=== PATIENT | male | born 1960 | race Caucasian/White ===

== ENCOUNTER 2017-04-19 04:27 | Inpatient (IN) | payer OTHER ==
[2017-04-19] VITALS (16 sets, daily range): BP systolic 123–153; BP diastolic 79–93; PULSE 90–130; RESP 18–29; TEMP 98.4–99.7; O2SAT 96–97
[~2017-04-19] VITALS: Ht 182.9 cm; Wt 68.9 kg
[~2017-04-19 04:27] MED LIST: CIPR500T4 PO
[2017-04-19] MEDS ORDERED: SODIUM CHLOR 0.9% 1000 ML INJ 1,000 ML IV SCH (04:31)
[2017-04-19] MEDS ORDERED: LORazepam 2 MG/ML VIAL IV PUSH ONE ×4 (04:45→06:15)
[2017-04-19] MEDS ORDERED: THIAMINE INJ 100 MG in SODIUM CHLORIDE 0.9% INJ 100 ML IV ONE (04:45)
[2017-04-19] MEDS ORDERED: levETIRAcetam INJ 100 ML IV ONE (04:45)
[2017-04-19] MEDS ORDERED: SODIUM CHLORIDE 0.9% FLUSH 10 ML FLUSH IV FLUSH PRN (04:45)
[2017-04-19] MEDS ORDERED: diphenhydrAMINE HCL 50 MG/ML VIAL ONE (04:46)
[2017-04-19 04:56] LABS: AUTOMATED NEUTROPHIL # 9.8 TH/MM3 (1.8-7.7); BASOPHIL % 0.3 % (0.0-2.0); HEMOGLOBIN 14.3 GM/DL (13.0-17.0); LYMPH % 17.1 % (9.0-44.0); LYMPHOCYTE # 2.2 TH/MM3 (1.0-4.8); MEAN CORPUSCULAR HEMOGLOBIN 32.7 PG (27.0-34.0); MEAN CORPUSCULAR HGB CONC 33.4 % (32.0-36.0); MEAN PLATELET VOLUME 8.7 FL (7.0-11.0); MONO % 5.2 % (0.0-8.0); MONOCYTE # 0.7 TH/MM3 (0-0.9); NEUT % 77.4 % (16.0-70.0); PLATELET COUNT 173 TH/MM3 (150-450); RED BLOOD COUNT 4.39 MIL/MM3 (4.50-5.90); RED CELL DISTRIBUTION WIDTH 16.1 % (11.6-17.2); WHITE BLOOD COUNT 12.7 TH/MM3 (4.0-11.0)
[2017-04-19] MEDS ORDERED: diphenhydrAMINE HCL 50 MG/ML VIAL IV PUSH ONE (05:00)
--- NOTE | 2017-04-19 05:06 | RADRPT ---
EXAM DATE/TIME: 04/19/2017 04:37 [facility] COMPARISON: No previous studies available for comparison. INDICATIONS : Syncopal episode. MEDICAL HISTORY : None. SURGICAL HISTORY : Inguinal hernia repair. ENCOUNTER: Initial ACUITY: 1 day PAIN SCORE: Non-responsive. LOCATION: Bilateral chest FINDINGS: A single view of the chest demonstrates the lungs to be symmetrically aerated without evidence of mas s, infiltrate or effusion. The cardiomediastinal contours are unremarkable. Old left clavicle and le ft rib fractures are present CONCLUSION: 1. No acute cardiopulmonary disease. Joesph Bailon MD on April 19, 2017 at 5:03 Board Certified Radiologist. This report was verified electronically.
[2017-04-19 05:08] LABS: INTERNATIONAL NORMALIZED RATIO 1.2 RATIO; PROTHROMBIN TIME - PATIENT 12.2 SEC (9.8-11.6)
[2017-04-19] MEDS ORDERED: DEXTROSE 50% IN WATER 50 ML SYRINGE IV PUSH ONE (05:15)
--- NOTE | 2017-04-19 05:22 | PD ---
HPI . Seizure-like activity Chief Complaint: Seizure Time Seen by Provider: 04:31 Travel History International Travel<30 days: No Contact w/Intl Traveler<30days: No Traveled to known affect area: No History of Present Illness HPI 57-year-old male with history of chronic alcoholism and crack cocaine abuse, presents via EMS with possible alcohol withdrawals. His girlfriend noted that the patient has not had alcohol for at least 24 hours, that is current presentation is similar to previous episodes of alcohol withdrawal. Patient presents writhing on the stretcher responding to internal stimuli and visual stimuli not present. No harpreet seizure activity noted by EMS on route or noted here at presentation in ED. Patient is in active delirium, not offering history PFSH Past Medical History Narrative Medical Past medical history reviewed Arthritis: Yes Depression: Yes Cancer: No Cardiovascular Problems: No Diminished Hearing: No Endocrine: No Genitourinary: No Immune Disorder: No Inguinal Hernia: Yes (BILATERAL HERNIA) Implanted Vascular Access Dvce: No Musculoskeletal: No Neurologic: No Reproductive: No Respiratory: No Past Surgical History Other Surgery: Yes (INGUINAL HERNIA REPAIR) Social History Alcohol Use: Yes (DRINKING SINCE 25 YRS OLD,daily binger) Tobacco Use: Yes (1/2-1 PK DAILY) Substance Use: No Allergies-Medications (Allergen,Severity, Reaction): Coded Allergies: No Known Allergies (Unverified Adverse Reaction, Unknown, 04/19/17) Reported Meds & Prescriptions Reported Meds & Active Scripts Active Narrative Medication Allergies and medications reviewed Review of Systems Neurologic: Positive: Tremor, Ataxia, Change in Mentation, Seizures Psychiatric: Positive: Substance Abuse Physical Exam Exam Limitations: Clinical Condition, Altered Mental Status, Uncooperative, Combative, Psychotic Narrative GENERAL: Awake and altered, and delirium. Tachycardic 135 bpm limited exam secondary to patient's delirious and confused state SKIN: Warm and dry. Multiple lesions from patient self excoriating HEAD: Multiple ecchymotic lesions about face and had, no obvious bony step- offs. Normocephalic. EYES: Pupils equal and round. No scleral icterus. No injection or drainage. ENT: No nasal bleeding or discharge. Mucous membranes pink and moist. NECK: Trachea midline. No JVD. Supple moving actively CARDIOVASCULAR: S1 and S2 tachycardia regular RESPIRATORY: No accessory muscle use. Clear to auscultation. Breath sounds equal bilaterally. GASTROINTESTINAL: Abdomen soft, non-tender, nondistended. Hepatic and splenic margins not palpable. MUSCULOSKELETAL: Extremities without clubbing, cyanosis, or edema. No obvious deformities. NEUROLOGICAL: Awake severely confused, altered. Moving all 4 extremities, resting tremor, worsening intention tremor area no active seizure activity currently PSYCHIATRIC: Unable to participate in exam Data Data Last Documented VS Vital Signs Date Time Temp Pulse Resp B/P (MAP) Pulse Ox O2 Delivery O2 Flow Rate FiO2 04/19/17 04:35 130 24 146/90 (108) 96 Orders Orders Electrocardiogram (04/19/17 04:31) Ammonia (04/19/17 04:31) Complete Blood Count With Diff (04/19/17 04:31) Comprehensive Metabolic Panel (04/19/17 04:31) Creatine Kinase (Cpk) (04/19/17 04:31) Prothrombin Time / Inr (Pt) (04/19/17 04:31) Act Partial Throm Time (Ptt) (04/19/17 04:31) Troponin I (04/19/17 04:31) Thyroid Stimulating Hormone (04/19/17 04:31) Urinalysis - C+S If Indicated (04/19/17 04:31) Chest, Single Ap (04/19/17 04:31) Ct Brain W/O Iv Contrast(Rout) (04/19/17 04:31) Blood Glucose (04/19/17 04:31) Ecg Monitoring (04/19/17 04:31) Iv Access Insert/Monitor (04/19/17 04:31) Oximetry (04/19/17 04:31) Sodium Chloride 0.9% Flush (Ns Flush) (04/19/17 04:45) Sodium Chlor 0.9% 1000 Ml Inj (Ns 1000 M (04/19/17 04:31) Thiamine Inj (Thiamine Inj) (04/19/17 04:45) Drug Screen, Random Urine (04/19/17 04:31) Alcohol (Ethanol) (04/19/17 04:31) Tylenol (Acetaminophen) (04/19/17 04:31) Salicylates (Aspirin) (04/19/17 04:31) Lorazepam Inj (Ativan Inj) (04/19/17 04:45) Levetiracetam Inj (Keppra Inj) (04/19/17 04:45) Lorazepam Inj (Ativan Inj) (04/19/17 04:45) Diphenhydramine Inj (Benadryl Inj) (04/19/17 04:46) Diphenhydramine Inj (Benadryl Inj) (04/19/17 05:00) Lorazepam Inj (Ativan Inj) (04/19/17 05:15) Dextrose 50% In Vern (Syr) Inj (D50w (Syr (04/19/17 05:15) Labs Laboratory Tests Test 04/19/17 04:45 White Blood Count 12.7 TH/MM3 Red Blood Count 4.39 MIL/MM3 Hemoglobin 14.3 GM/DL Hematocrit 43.0 % Mean Corpuscular Volume 98.0 FL Mean Corpuscular Hemoglobin 32.7 PG Mean Corpuscular Hemoglobin Concent 33.4 % Red Cell Distribution Width 16.1 % Platelet Count 173 TH/MM3 Mean Platelet Volume 8.7 FL Neutrophils (%) (Auto) 77.4 % Lymphocytes (%) (Auto) 17.1 % Monocytes (%) (Auto) 5.2 % Eosinophils (%) (Auto) 0.0 % Basophils (%) (Auto) 0.3 % Neutrophils # (Auto) 9.8 TH/MM3 Lymphocytes # (Auto) 2.2 TH/MM3 Monocytes # (Auto) 0.7 TH/MM3 Eosinophils # (Auto) 0.0 TH/MM3 Basophils # (Auto) 0.0 TH/MM3 CBC Comment DIFF FINAL Differential Comment Prothrombin Time 12.2 SEC Prothromb Time International Ratio 1.2 RATIO Activated Partial Thromboplast Time 26.9 SEC Ammonia 51 MCMOL/L Salicylates Level LESS THAN 1.7 MG/DL [facility] Medical Decision Making Medical Screen Exam Complete: Yes Emergency Medical Condition: Yes Medical Record Reviewed: Yes Differential Diagnosis Acute alcohol withdrawal, chronic intoxication, altered mental status, delirium , tachycardia Narrative Course Patient given multiple aliquots of Ativan 2 mg IV push with improvement in patient's symptomatology. Tremors, response to auditory and/or visual stimuli decreasing, heart rate decreasing. Diagnosis Primary Impression: Alcohol withdrawal delirium Additional Impression: Alcohol withdrawal seizure Qualified Codes: F10.231 - Alcohol dependence with withdrawal delirium Admitting Information Admitting Physician Requests: Admit Robin Robison MD Apr 19, 2017 05:21
[2017-04-19 05:29] LABS: ACETAMINOPHEN LESS THAN 2.0 MCG/ML (10.0-30.0); ALBUMIN 3.3 GM/DL (3.4-5.0); ALKALINE PHOSPHATASE 288 U/L (45-117); ALT (GPT) 102 U/L (12-78); AST (GOT) 328 U/L (15-37); BICARBONATE 18.6 MEQ/L (21.0-32.0); BLOOD UREA NITROGEN 4 MG/DL (7-18); CALCIUM 8.4 MG/DL (8.5-10.1); CHLORIDE 101 MEQ/L (98-107); CREATININE 0.86 MG/DL (0.60-1.30); GLOMERULAR FILTRATION RATE 92 ML/MIN (>89); GLUCOSE,RANDOM 107 MG/DL (74-106); SODIUM (NA) 137 MEQ/L (136-145); TOTAL BILIRUBIN ADULT 1.4 MG/DL (0.2-1.0); TOTAL PROTEIN 8.8 GM/DL (6.4-8.2); TROPONIN I LESS THAN 0.02 NG/ML (0.02-0.05)
--- NOTE | 2017-04-19 06:51 | RADRPT ---
EXAM DATE/TIME: 04/19/2017 06:26 [facility] COMPARISON: No previous studies available for comparison. INDICATIONS : Seizure; possible overdose. RADIATION DOSE: 35.82 CTDIvol (mGy) MEDICAL HISTORY : None SURGICAL HISTORY : None. ENCOUNTER: Initial ACUITY: 1 day PAIN SCALE: Non-responsive LOCATION: cranial TECHNIQUE: Multiple contiguous axial images were obtained of the head. Using automated exposure control and adj ustment of the mA and/or kV according to patient size, radiation dose was kept as low as reasonably a chievable to obtain optimal diagnostic quality images. DICOM format image data is available electro nically for review and comparison. FINDINGS: Noncontrast axial head CT demonstrates the ventricles to be normal in size and configuration with a n ormal sulcal pattern. No acute intracranial hemorrhage, acute cortical infarction, mass or midline sh ift is seen. There is benign-appearing mucosal disease in the maxillary antra bilaterally. Posterior fossa structures are unremarkable. Bone windows are unremarkable. CONCLUSION: 1. No evidence of acute intracranial pathology. No masses are identified. Joesph Bailon MD on April 19, 2017 at 6:48 Board Certified Radiologist. This report was verified electronically.
[2017-04-19] MEDS ORDERED: SODIUM CHLOR 0.9% 1000 ML INJ 1,000 ML IV ONE (07:00)
[2017-04-19] MEDS ORDERED: LACTULOSE SYRUP 20 GM/30 ML CUP PO PRN (09:45)
[2017-04-19] MEDS: INSULIN NovoLIN REGULAR SUPPLEMENTAL SCALE SQ SCH ×4 (09:45→21:45)
[2017-04-19] MEDS ORDERED: MAGNESIUM HYDROXIDE SUSP 30 ML CUP PO PRN (09:45)
[2017-04-19] MEDS ORDERED: GLUCAGON 1 MG/ML VIAL OTHER PRN (09:45)
[2017-04-19] MEDS ORDERED: CHLORHEXIDINE GLUCONATE 2 % 1 PACK (2 CLOTHS) TOP PRN (09:45)
[2017-04-19] MEDS ORDERED: DEXTROSE 50% IN WATER 50 ML VIAL(D50) IV PUSH PRN (09:45)
[2017-04-19] MEDS ORDERED: SENNOSIDES 8.6 MG TAB PO PRN (09:45)
[2017-04-19] MEDS ORDERED: RESP: ALBUTEROL 2.5 MG/IPRATROPIUM 0.5 MG NEB (PRN) INH (09:45)
[2017-04-19] MEDS ORDERED: MISCELLANEOUS NURSING INFORMATION XX SCH (09:45)
[2017-04-19] MEDS ORDERED: BISACODYL 10 MG SUPP RECTAL PRN (09:45)
[2017-04-19 09:53] LABS: BILIRUBIN, URINE NEG (NEG); BLOOD, URINE NEG (NEG); GLUCOSE,URINE NEG (NEG); KETONE, URINE NEG (NEG); MUCUS URINE FEW /lpf (OCC); NITRITE,URINE NEG (NEG); TRANSITIONAL EPI CELLS, URINE <1 /hpf; URINE COLOR YELLOW (YELLW/STRAW); URINE LEUKOCYTE ESTERASE NEG (NEG)
[2017-04-19] MEDS ORDERED: POTASSIUM PHOSPHATE MONOBASIC 500 MG TAB PO PRN (10:00)
[2017-04-19] MEDS ORDERED: SODIUM PHOSPHATE INJ 30 MMOL in SODIUM CHLOR 0.9% 250 ML INJ 240 ML IV PRN (10:00)
[2017-04-19] MEDS ORDERED: LORazepam 1 MG TAB PO PRN ×2 (10:00→21:00)
[2017-04-19] MEDS ORDERED: POTASSIUM PHOSPHATE MONOBASIC 500 MG TAB PO/TUBE PRN (10:00)
[2017-04-19] MEDS ORDERED: MAGNESIUM OXIDE 400 MG TAB PO PRN (10:00)
[2017-04-19] MEDS ORDERED: MAGNESIUM SULFATE INJ 2 GM in SODIUM CHLORIDE 0.9% INJ 96 ML IV PRN (10:00)
[2017-04-19] MEDS ORDERED: MAGNESIUM SULFATE INJ 4 GM in SODIUM CHLORIDE 0.9% INJ 92 ML IV PRN (10:00)
[2017-04-19] MEDS ORDERED: FLUMAZENIL 0.5 MG/5 ML VIAL IV PUSH PRN ×2 (10:00→21:00)
[2017-04-19] MEDS ORDERED: LORazepam 2 MG/ML VIAL IV PUSH PRN ×6 (10:00→21:00)
[2017-04-19] MEDS ORDERED: POTASSIUM PHOSPHATE INJ 30 MMOL in SODIUM CHLOR 0.9% 250 ML INJ 250 ML IV PRN (10:00)
[2017-04-19] MEDS ORDERED: POTASSIUM CHLOR 40 MEQ PREMIX 100 ML IV PRN ×2 (10:00)
[2017-04-19] MEDS: RESP: ALBUTEROL 2.5 MG/IPRATROPIUM 0.5 MG NEB (SCH) INH ×3 (10:37→22:11)
--- NOTE | 2017-04-19 10:42 | RADRPT ---
EXAM DATE/TIME: 04/19/2017 10:10 [facility] COMPARISON: No previous studies available for comparison. INDICATIONS : Increased lab values. MEDICAL HISTORY : Bilateral hernia. ETOH and substance abuse. SURGICAL HISTORY : Left knee surgery. Inguinal hernia repair. ENCOUNTER: Initial ACUITY: 1 day PAIN SCORE: Nonresponsive. LOCATION: Bilateral upper quadrant MEASUREMENTS: LIVER: 18.77 cm length COMMON DUCT: 2 mm RIGHT KIDNEY: 12.7 x 5.6 x 5.4 cm SPLEEN: 14.7 cm length FINDINGS: LIVER: Liver is enlarged measuring up to 18.8 cm in diameter with heterogeneity and increased echogenicity. There is no focal mass or ductal dilatation. There is normal hepatopedal blood flow in the portal vei n. There is no ascites. COMMON DUCT: No intraluminal mass or stone visualized. GALLBLADDER: Normal in size. There is mild gallbladder wall thickening measuring up to 4 mm with no pericholecysti c fluid. There is a single air calcification of posterior shadowing. PANCREAS: The visualized portions are within normal limits. RIGHT KIDNEY: No hydronephrosis, stone or mass. SPLEEN: Mild splenomegaly measuring up to 14.7 cm. There is no focal mass or ascites. CONCLUSION: 1. Hepatosplenomegaly with coarse hepatic echotexture which could indicate hepatocellular disease or cys hepatic steatosis. 2. Cholelithiasis with single gallstone and mild wall thickening. There is no evidence of biliary obs truction. Paul Hassan MD on April 19, 2017 at 10:38 Board Certified Radiologist. This report was verified electronically.
[2017-04-19] MEDS: MULTIVITAMIN TAB PO SCH (11:00)
[2017-04-19] MEDS: THIAMINE HCL 100 MG TAB PO SCH (11:00)
[2017-04-19] MEDS: FOLIC ACID 1 MG TAB PO SCH (11:00)
[2017-04-19] MEDS: FAMOTIDINE 20 MG/2 ML VIAL IV PUSH SCH ×2 (11:01→21:00)
[2017-04-19] MEDS: LORazepam 2 MG/ML VIAL IV PUSH PRN ×3 (11:04→23:55)
[2017-04-19] MEDS: SODIUM CHLOR 0.9% 1000 ML INJ 1,000 ML IV SCH ×2 (11:05→15:02)
[2017-04-19] MEDS: LACTULOSE SYRUP 20 GM/30 ML CUP PO SCH ×2 (13:00→17:59)
--- NOTE | 2017-04-19 13:51 | MH ---
cc: ELIASADRIANA RODRIGUEZ DATE OF ADMISSION: 04/19/2017 1961 HISTORY OF PRESENT ILLNESS The patient is a 57-year-old male with past medical history of ETOH abuse, crack cocaine, who presented to [facility] ED via EMS with possible alcohol withdrawal. According to the ED records the patient has not had alcohol for at least 24 hours and his current presentation is similar to previous episodes of alcohol withdrawal. No harpreet seizure activity noted by EMS en route or in the ED. History is limited due to patient's mental status and most of the history was obtained from reviewing medical records. He was given total Ativan 10 mg since early this morning, in addition to 2 liter boluses of normal saline. His laboratory data significant for elevated alcohol level at 37, elevated CKs 4919 and ammonia level 51. The patient was also noted to have increased LFTs with AST 328, ALT 102, alk phos 288 and total bilirubin 1.4. Due to altered mental status CT scan of brain was obtained which showed no evidence of any acute intracranial pathology. Chest x-ray in the ED showed no acute cardiopulmonary disease as well. PAST MEDICAL HISTORY Past medical history significant for arthritis, depression. PAST SURGICAL HISTORY Previous inguinal hernia repair. SOCIAL HISTORY Active smoker and drinker and a history of crack cocaine use. ALLERGIES NO KNOWN DRUG ALLERGIES. MEDICATION Reported medications: Unknown. FAMILY HISTORY Unknown and noncontributory to current present illness. SOCIAL HISTORY Unobtainable. PHYSICAL EXAMINATION GENERAL: A 57-year-old male lying in bed with altered mental status. VITAL SIGNS: Temperature 99.7, pulse of 110, blood pressure 146/90, saturation 96% on 2 liters. HEENT: Atraumatic, normocephalic. Pupil equal, round, reactive to light and accommodation. Extraocular muscles intact. Conjunctivae pink. Nonicteric sclerae. Oral mucosa within normal. NECK: Supple. No JVD, adenopathy or thyromegaly. Trachea midline. CARDIOVASCULAR: Tachycardic, normal S1-S2. No murmurs, rubs or gallops noted. PULMONARY: Bilateral equal air entry with a few coarse breath sounds. ABDOMEN: Soft, nontender, nondistended. Positive bowel sounds. EXTREMITIES: No cyanosis, clubbing or edema. NEURO: Lethargic, somnolent and altered. LABORATORY DATA WBC 12.7, hemoglobin 14.3, hematocrit 43, platelet count 173, sodium 137, potassium 3.6, chloride 101, CO2 18, BUN 4, creatinine 0.86, glucose 107, total bilirubin 1.4, AST 328, ALT 102, alk phos 288, ammonia level of 51, total CK 4919, troponin less than 0.02, TSH 1.6, albumin 3.3. ABG was performed on room air which showed a pH of 7.47, CO2 32, pAO2 57, bicarb 23. Urine drug screen negative for cocaine, marijuana, amphetamines, alcohol level 37, Tylenol level less than 2, aspirin level less than 1.7. RADIOGRAPHIC STUDIES CT scan of the brain showed no evidence of any acute intracranial pathology. Chest x-ray showed no acute disease. IMPRESSION 1. Respiratory insufficiency. 2. Altered mental status. 3. ETOH intoxication. 4. Questionable drug overdose. 5. Elevated LFTs secondary to ETOH use. 6. Elevated ammonia level. 7. Elevated CKs. RECOMMENDATIONS 1. Monitor neuro status closely and avoid any sedatives. A CT scan of the brain in the ED showed no acute intracranial pathology. Monitor for signs of alcohol withdrawal. Will place the patient on CIWA protocol. In addition we will place on thiamine, multivitamins and folic acid. Will place on lactulose 30 mL t.i.d. and monitor ammonia level. 2. Continue with oxygen, maintain sats above 92%. 3. Bronchodilators in the form of DuoNeb. If there is any worsening in respiratory status or clinical condition we will proceed with intubation and mechanical ventilation. 4. Chest x-ray in the ED showed no evidence of any acute cardiopulmonary disease. 5. Monitor heart rate and blood pressure closely and maintain MAP greater than [address] on IV fluids NS at 100 mL an hour. 6. Monitor renal function, I&O's and electrolyte replacement per protocol. IV fluids as stated above. Monitor CKs. 7. Keep n.p.o. for now and place on Pepcid 20 mg IV q. 12. Monitor LFTs. Will obtain ultrasound of the liver and check hepatitis profile. 8. Will hold off on antibiotics at this time as there is no evidence of any infectious process. His urinalysis was negative for UTI and chest x-ray negative for acute cardiopulmonary disease. 9. Monitor CBC. 10. Sliding scale insulin with Accu-Cheks for glycemic control. 11. GI prophylaxis with Pepcid 20 mg q. 12 and DVT prophylaxis with SCDs and heparin subcu. 12. Further recommendations will be based on hospital course. MD DANELLE Alvarez/LORETTA /1:06 PM /1:27 PM
[2017-04-19] MEDS: DEXT 5%-NACL 0.9% 1000 ML INJ 1,000 ML IV SCH (16:15)
[2017-04-19 19:03] LABS: AUTOMATED NEUTROPHIL # 4.6 TH/MM3 (1.8-7.7); BASOPHIL % 0.5 % (0.0-2.0); EOSINOPHIL % 0.4 % (0.0-4.0); HEMATOCRIT 36.4 % (39.0-51.0); HEMOGLOBIN 12.3 GM/DL (13.0-17.0); LYMPH % 20.2 % (9.0-44.0); LYMPHOCYTE # 1.3 TH/MM3 (1.0-4.8); MEAN CORPUSCULAR HEMOGLOBIN 32.5 PG (27.0-34.0); MEAN CORPUSCULAR HGB CONC 33.9 % (32.0-36.0); MEAN PLATELET VOLUME 8.8 FL (7.0-11.0); MONO % 6.7 % (0.0-8.0); MONOCYTE # 0.4 TH/MM3 (0-0.9); NEUT % 72.2 % (16.0-70.0); PLATELET COUNT 87 TH/MM3 (150-450); RED BLOOD COUNT 3.79 MIL/MM3 (4.50-5.90); RED CELL DISTRIBUTION WIDTH 16.2 % (11.6-17.2); WHITE BLOOD COUNT 6.4 TH/MM3 (4.0-11.0)
[2017-04-19 19:10] LABS: ALBUMIN 2.7 GM/DL (3.4-5.0); ALKALINE PHOSPHATASE 218 U/L (45-117); ALT (GPT) 88 U/L (12-78); AST (GOT) 265 U/L (15-37); BICARBONATE 23.2 MEQ/L (21.0-32.0); BLOOD UREA NITROGEN 5 MG/DL (7-18); CALCIUM 7.6 MG/DL (8.5-10.1); CHLORIDE 106 MEQ/L (98-107); CREATININE 0.57 MG/DL (0.60-1.30); GLOMERULAR FILTRATION RATE 148 ML/MIN (>89); GLUCOSE,RANDOM 89 MG/DL (74-106); SODIUM (NA) 140 MEQ/L (136-145); TOTAL BILIRUBIN ADULT 1.5 MG/DL (0.2-1.0); TOTAL PROTEIN 6.8 GM/DL (6.4-8.2)
[2017-04-19] MEDS: POTASSIUM CHLOR 20 MEQ PREMIX 100 ML IV PRN ×2 (20:11→22:22)
[2017-04-19] MEDS: HEPARIN SODIUM - SQ 10,000 UNITS/ML VIAL SQ SCH (21:00)
[2017-04-19] MEDS ORDERED: DEXMEDETOMIDINE HCL 200 MCG/2 ML VIAL IV PUSH ONE (21:00)
[2017-04-19] MEDS: DOCUSATE SODIUM 50 MG/SENNA 8.6 MG TAB PO SCH (21:00)
[2017-04-19] MEDS ORDERED: LORazepam 2 MG TAB PO PRN (21:00)
[2017-04-20] VITALS (20 sets, daily range): BP systolic 126–162; BP diastolic 73–89; PULSE 90–121; RESP 24–32; TEMP 98.2–102.7; O2SAT 96–99
[2017-04-20] MEDS: DEXMEDETOMIDINE INJ 200 MCG in SODIUM CHLORIDE 0.9% INJ 50 ML IV PRN ×2 (00:12→06:04)
[2017-04-20] MEDS: POTASSIUM CHLOR 20 MEQ PREMIX 100 ML IV PRN ×2 (00:48→02:50)
[2017-04-20] MEDS: INSULIN NovoLIN REGULAR SUPPLEMENTAL SCALE SQ SCH ×6 (01:45→20:23)
[2017-04-20] MEDS: RESP: ALBUTEROL 2.5 MG/IPRATROPIUM 0.5 MG NEB (SCH) INH ×4 (03:48→20:28)
[2017-04-20 03:56] LABS: AUTOMATED NEUTROPHIL # 3.1 TH/MM3 (1.8-7.7); BASOPHIL # 0.1 TH/MM3 (0-0.2); EOSINOPHIL # 0.1 TH/MM3 (0-0.4); EOSINOPHIL % 1.7 % (0.0-4.0); HEMOGLOBIN 12.5 GM/DL (13.0-17.0); LYMPH % 29.3 % (9.0-44.0); LYMPHOCYTE # 1.5 TH/MM3 (1.0-4.8); MEAN CELL VOLUME 98.5 FL (80.0-100.0); MEAN CORPUSCULAR HEMOGLOBIN 33.3 PG (27.0-34.0); MEAN CORPUSCULAR HGB CONC 33.8 % (32.0-36.0); MEAN PLATELET VOLUME 8.6 FL (7.0-11.0); MONO % 9.7 % (0.0-8.0); MONOCYTE # 0.5 TH/MM3 (0-0.9); NEUT % 58.3 % (16.0-70.0); PLATELET COUNT 81 TH/MM3 (150-450); RED BLOOD COUNT 3.76 MIL/MM3 (4.50-5.90); RED CELL DISTRIBUTION WIDTH 16.1 % (11.6-17.2); WHITE BLOOD COUNT 5.2 TH/MM3 (4.0-11.0)
[2017-04-20] MEDS: CHLORHEXIDINE GLUCONATE 2 % 1 PACK (2 CLOTHS) TOP SCH (04:00)
[2017-04-20] MEDS: DEXT 5%-NACL 0.9% 1000 ML INJ 1,000 ML IV SCH ×2 (04:04→16:51)
[2017-04-20 04:46] LABS: ALBUMIN 2.5 GM/DL (3.4-5.0); BICARBONATE 22.1 MEQ/L (21.0-32.0); CALCIUM 7.4 MG/DL (8.5-10.1); CALCIUM-PROTEIN CORRECTED 7.6 MG/DL (8.5-10.1); CREATININE 0.51 MG/DL (0.60-1.30); MAGNESIUM 1.5 MG/DL (1.5-2.5); PHOSPHORUS 2.7 MG/DL (2.5-4.9); TOTAL BILIRUBIN ADULT 1.4 MG/DL (0.2-1.0); TOTAL PROTEIN 6.7 GM/DL (6.4-8.2)
--- NOTE | 2017-04-20 06:29 | EKG ---
Date Performed: 04/19/2017 Time Performed: 05:26:15 PTAGE: 57 years EKG: SINUS TACHYCARDIA POSSIBLE LEFT ATRIAL ENLARGEMENT NONSPECIFIC T-WAVE ABNORMALITY RIGHT FELISHA TRICULAR CONDUCTION DELAY ABNORMAL RHYTHM ECG Compared to PREVIOUS TRACING , there has been some slight variation of the nonspecific ST-T wave lees ges but no other signifiant serial change. PREVIOUS TRACIN12/18/2013 15.15 DOCTOR: Jory Lewis Interpretating Date/Time 04/20/2017 06:29:46
[2017-04-20] MEDS: LACTULOSE SYRUP 20 GM/30 ML CUP PO SCH ×3 (09:00→16:54)
[2017-04-20] MEDS: FOLIC ACID 1 MG TAB PO SCH (09:00)
[2017-04-20] MEDS: THIAMINE HCL 100 MG TAB PO SCH (09:00)
[2017-04-20] MEDS: MULTIVITAMIN TAB PO SCH (09:00)
[2017-04-20] MEDS: DOCUSATE SODIUM 50 MG/SENNA 8.6 MG TAB PO SCH ×2 (09:00→20:20)
[2017-04-20 09:37] LABS: HEPATITIS A AB IGM NEGATIVE (NEGATIVE); HEPATITIS B CORE AB IGM NEGATIVE (NEGATIVE); HEPATITIS B SURFACE ANTIGEN NEGATIVE (NEGATIVE); HEPATITIS C AB IgG REACTIVE (NEGATIVE)
--- NOTE | 2017-04-20 10:24 | HHI.CCPN ---
Subjective Remarks/Hospital Course Patient is a 57-year-old male with past medical history of ETOH abuse, crack cocaine, who presented to [facility] ED via EMS with possible alcohol withdrawal. According to the ED records the patient has not had alcohol for at least 24 hours and his current presentation is similar to previous episodes of alcohol withdrawal. No harpreet seizure activity noted by EMS en route or in the ED. History is limited due to patient's mental status and most of the history was obtained from reviewing medical records. He was given total Ativan 10 mg since early this morning, in addition to 2 liter boluses of normal saline. His laboratory data significant for elevated alcohol level at 37, elevated CKs 4919 and ammonia level 51. The patient was also noted to have increased LFTs with AST 328, ALT 102, alk phos 288 and total bilirubin 1.4. Due to altered mental status CT scan of brain was obtained which showed no evidence of any acute intracranial pathology. Chest x-ray in the ED showed no acute cardiopulmonary disease as well. 04/20 Patient was placed on Precedex drip overnight for agitation. Afebrile. Objective Vital Signs Date Time Temp Pulse Resp B/P (MAP) Pulse Ox O2 Delivery O2 Flow Rate FiO2 04/20/17 08:50 99 Nasal Cannula 2.00 04/20/17 06:00 97 04/20/17 04:00 98.5 30 141/73 (95) Intake and Output 04/20/17 04/20/17 04/21/17 08:00 16:00 00:00 Intake Total 1948 ml Output Total 750 ml Balance 1198 ml Result Diagram: 04/20/17 0312 04/20/17 0312 Other Results Laboratory Tests Test 04/19/17 12:26 04/19/17 17:13 04/19/17 20:54 04/20/17 03:12 Blood Gas Puncture Site RT RADIAL Blood Gas Patient Temperature 98.6 Blood Gas HCO3 23 mmol/L Blood Gas Base Excess -0.7 mmol/L Blood Gas Oxygen Saturation 88 % Arterial Blood pH 7.47 Arterial Blood Partial Pressure CO2 32 mmHg Arterial Blood Partial Pressure O2 57 mmHG Arterial Blood Oxygen Content 14.7 Vol % Arterial Blood Carboxyhemoglobin 1.9 % Arterial Blood Methemoglobin 0.5 % Blood Gas Hemoglobin 11.9 G/DL Oxygen Delivery Device ROOM AIR Blood Gas Inspired Oxygen 21 % White Blood Count 6.4 TH/MM3 5.2 TH/MM3 Red Blood Count 3.79 MIL/MM3 3.76 MIL/MM3 Hemoglobin 12.3 GM/DL 12.5 GM/DL Hematocrit 36.4 % 37.0 % Mean Corpuscular Volume 96.0 FL 98.5 FL Mean Corpuscular Hemoglobin 32.5 PG 33.3 PG Mean Corpuscular Hemoglobin Concent 33.9 % 33.8 % Red Cell Distribution Width 16.2 % 16.1 % Platelet Count 87 TH/MM3 81 TH/MM3 Mean Platelet Volume 8.8 FL 8.6 FL Neutrophils (%) (Auto) 72.2 % 58.3 % Lymphocytes (%) (Auto) 20.2 % 29.3 % Monocytes (%) (Auto) 6.7 % 9.7 % Eosinophils (%) (Auto) 0.4 % 1.7 % Basophils (%) (Auto) 0.5 % 1.0 % Neutrophils # (Auto) 4.6 TH/MM3 3.1 TH/MM3 Lymphocytes # (Auto) 1.3 TH/MM3 1.5 TH/MM3 Monocytes # (Auto) 0.4 TH/MM3 0.5 TH/MM3 Eosinophils # (Auto) 0.0 TH/MM3 0.1 TH/MM3 Basophils # (Auto) 0.0 TH/MM3 0.1 TH/MM3 CBC Comment AUTO DIFF AUTO DIFF Differential Comment AUTO DIFF CONFIRMED AUTO DIFF CONFIRMED Platelet Estimate LOW LOW Platelet Morphology Comment NORMAL NORMAL Blood Urea Nitrogen 5 MG/DL 5 MG/DL Creatinine 0.57 MG/DL 0.51 MG/DL Random Glucose 89 MG/DL 99 MG/DL Total Protein 6.8 GM/DL 6.7 GM/DL Albumin 2.7 GM/DL 2.5 GM/DL Calcium Level 7.6 MG/DL 7.4 MG/DL Alkaline Phosphatase 218 U/L 204 U/L Aspartate Amino Transf (AST/SGOT) 265 U/L 200 U/L Alanine Aminotransferase (ALT/SGPT) 88 U/L 77 U/L Total Bilirubin 1.5 MG/DL 1.4 MG/DL Sodium Level 140 MEQ/L 139 MEQ/L Potassium Level 3.1 MEQ/L 4.2 MEQ/L Chloride Level 106 MEQ/L 110 MEQ/L Carbon Dioxide Level 23.2 MEQ/L 22.1 MEQ/L Anion Gap 11 MEQ/L 7 MEQ/L Estimat Glomerular Filtration Rate 148 ML/MIN 168 ML/MIN Phosphorus Level 2.1 MG/DL 2.7 MG/DL Hepatitis A IgM Antibody NEGATIVE Hepatitis B Surface Antigen NEGATIVE Hepatitis B Core IgM Antibody NEGATIVE Hepatitis C Antibody REACTIVE Magnesium Level 1.5 MG/DL Protein Corrected Calcium 7.6 MG/DL Total Creatine Kinase 1841 U/L Creatine Kinase MB 5.5 NG/ML Creatine Kinase MB % 0.3 % Imaging Last Impressions Head CT 04/19/17430 Signed Impressions: Service Date/Time: April 06:26 - CONCLUSION: 1. No evidence of acute intracranial pathology. No masses are identified. Joesph Bailon MD Chest X-Ray 04/19/17430 Signed Impressions: Service Date/Time: April 04:37 - CONCLUSION: 1. No acute cardiopulmonary disease. Joesph Bailon MD Liver Ultrasound 04/19/17 0000 Signed Impressions: Service Date/Time: April 10:10 - CONCLUSION: 1. Hepatosplenomegaly with coarse hepatic echotexture which could indicate hepatocellular disease or cys hepatic steatosis. 2. Cholelithiasis with single gallstone and mild wall thickening. There is no evidence of biliary obstruction. Paul Hassan MD Objective Remarks GENERAL: Patient is 57 yo lying in bed in NAD. SKIN: Warm and dry. HEAD: Normocephalic. EYES: No scleral icterus. No injection or drainage. NECK: Supple, trachea midline. No JVD or lymphadenopathy. CARDIOVASCULAR: Regular rate and rhythm without murmurs, gallops, or rubs. RESPIRATORY: Breath sounds equal bilaterally. No accessory muscle use. GASTROINTESTINAL: Abdomen soft, non-tender, nondistended. MUSCULOSKELETAL: No cyanosis, or edema. A/P Assessment and Plan 1. Respiratory insufficiency. 2. Altered mental status. 3. ETOH intoxication. 4. Questionable drug overdose. 5. Elevated LFTs secondary to ETOH use. 6. Elevated ammonia level. 7. Elevated CKs.(trending down) 8. Hep C reactive ab Plan Neuro: Monitor neuro status closely and avoid any sedatives. Wean off Precedex drip. CT brain in the ED showed no acute intracranial pathology. Monitor for signs of alcohol withdrawal. On CIWA protocol. Continue with thiamine, multivitamins and folic acid. On lactulose 30 mL t.i.d.monitor ammonia level. Pulm: Continue with oxygen, maintain sats above 92%. Bronchodilators, aspiration precautions CXR in ED showed no evidence of any acute cardiopulmonary disease. CV: Monitor HR and BP and maintain MAP > 65 mmHg. : Monitor renal function, I&O's and electrolyte replacement per protocol f On D5NS@84ml/hr, monitor CK's ( trending down) GI: On Pepcid 20 mg IV q. 12. Speech eval, diet per speech. Monitor LFTs( trending down) US Liver: Hepatosplenomegaly with coarse hepatic echotexture which could indicate hepatocellular disease or cys hepatic steatosis. Cholelithiasis with single gallstone and mild wall thickening. There is no evidence of biliary obstruction. Hepatitis profile: Hep C reactive ab. ID: Monitor for signs of infections ( fever, WBC) His urinalysis is negative for UTI and chest x-ray negative for acute cardiopulmonary disease. Heme: Monitor CBC. Endo: SSI with Accu-Cheks for glycemic control. GI prophylaxis with Pepcid 20 mg q. 12 and DVT prophylaxis with SCDs and heparin subcu. Level 3 Adriaon Luna MD Apr 20, 2017 10:24
[2017-04-20] MEDS: FAMOTIDINE 20 MG/2 ML VIAL IV PUSH SCH ×2 (12:58→20:19)
[2017-04-20] MEDS: HEPARIN SODIUM - SQ 10,000 UNITS/ML VIAL SQ SCH ×2 (12:58→20:20)
[2017-04-20] MEDS: LORazepam 2 MG/ML VIAL IV PUSH PRN (19:31)
[2017-04-20] MEDS: HALOPERIDOL LACTATE 5 MG/ML AMP IM PRN (19:33)
[2017-04-20] MEDS ORDERED: DEXMEDETOMIDINE INJ 1,000 MCG in SODIUM CHLOR 0.9% 250 ML INJ 240 ML IV PRN (20:15)
[2017-04-20] MEDS ORDERED: ACETAMINOPHEN 1000 MG/100 ML 100 ML IV PRN (22:45)
[2017-04-21] VITALS (15 sets, daily range): BP systolic 125–145; BP diastolic 72–83; PULSE 94–110; RESP 21–27; TEMP 98.6–101.9; O2SAT 94–100
[2017-04-21] MEDS: INSULIN NovoLIN REGULAR SUPPLEMENTAL SCALE SQ SCH ×6 (01:45→21:21)
[2017-04-21] MEDS: DEXT 5%-NACL 0.9% 1000 ML INJ 1,000 ML IV SCH ×2 (04:00→15:55)
[2017-04-21] MEDS: CHLORHEXIDINE GLUCONATE 2 % 1 PACK (2 CLOTHS) TOP SCH (04:00)
[2017-04-21] MEDS: POTASSIUM CHLOR 20 MEQ PREMIX 100 ML IV PRN ×2 (04:01→06:09)
[2017-04-21] MEDS: RESP: ALBUTEROL 2.5 MG/IPRATROPIUM 0.5 MG NEB (SCH) INH ×4 (04:08→22:00)
[2017-04-21 05:30] LABS: BASOPHIL % 0.6 % (0.0-2.0); EOSINOPHIL # 0.1 TH/MM3 (0-0.4); EOSINOPHIL % 2.3 % (0.0-4.0); HEMATOCRIT 37.4 % (39.0-51.0); HEMOGLOBIN 12.7 GM/DL (13.0-17.0); LYMPH % 40.9 % (9.0-44.0); LYMPHOCYTE # 1.7 TH/MM3 (1.0-4.8); MEAN CORPUSCULAR HEMOGLOBIN 33.4 PG (27.0-34.0); MEAN CORPUSCULAR HGB CONC 34.1 % (32.0-36.0); MEAN PLATELET VOLUME 8.7 FL (7.0-11.0); MONO % 9.8 % (0.0-8.0); MONOCYTE # 0.4 TH/MM3 (0-0.9); NEUT % 46.4 % (16.0-70.0); PLATELET COUNT 80 TH/MM3 (150-450); RED BLOOD COUNT 3.82 MIL/MM3 (4.50-5.90); RED CELL DISTRIBUTION WIDTH 15.4 % (11.6-17.2); WHITE BLOOD COUNT 4.2 TH/MM3 (4.0-11.0)
[2017-04-21 05:51] LABS: ALBUMIN 2.5 GM/DL (3.4-5.0); AST (GOT) 153 U/L (15-37); BICARBONATE 23.3 MEQ/L (21.0-32.0); BLOOD UREA NITROGEN 4 MG/DL (7-18); CALCIUM 7.7 MG/DL (8.5-10.1); CHLORIDE 103 MEQ/L (98-107); GLOMERULAR FILTRATION RATE 172 ML/MIN (>89); GLUCOSE,RANDOM 97 MG/DL (74-106); MAGNESIUM 1.8 MG/DL (1.5-2.5); SODIUM (NA) 135 MEQ/L (136-145)
[2017-04-21 05:53] LABS: ALT (GPT) 71 U/L (12-78); PHOSPHORUS 2.4 MG/DL (2.5-4.9)
[2017-04-21 05:55] LABS: ALKALINE PHOSPHATASE 199 U/L (45-117); TOTAL BILIRUBIN ADULT 1.4 MG/DL (0.2-1.0); TOTAL PROTEIN 6.9 GM/DL (6.4-8.2)
[2017-04-21 08:19] LABS: BANDS 9 % (0-6); LYMPHOCYTES 30 % (9-44); MONOCYTES 7 % (0-8); NEUTROPHIL # MANUAL DIFF 2.5 TH/MM3 (1.8-7.7); POLYS (SEG NEUTROPHILS) 50 % (16-70)
[2017-04-21] MEDS: DOCUSATE SODIUM 50 MG/SENNA 8.6 MG TAB PO SCH ×2 (09:00→21:20)
[2017-04-21] MEDS: MULTIVITAMIN TAB PO SCH (09:00)
[2017-04-21] MEDS: FOLIC ACID 1 MG TAB PO SCH (09:00)
[2017-04-21] MEDS: LACTULOSE SYRUP 20 GM/30 ML CUP PO SCH ×3 (09:00→18:00)
[2017-04-21] MEDS: THIAMINE HCL 100 MG TAB PO SCH (09:00)
[2017-04-21] MEDS: HEPARIN SODIUM - SQ 10,000 UNITS/ML VIAL SQ SCH ×2 (09:00→21:21)
[2017-04-21] MEDS: FAMOTIDINE 20 MG/2 ML VIAL IV PUSH SCH (10:01)
[2017-04-21] MEDS ORDERED: RESP: ALBUTEROL 2.5 MG/3 ML NEB (PRN) NEB (16:30)
--- NOTE | 2017-04-21 16:36 | HHI.CCPN ---
Subjective Remarks/Hospital Course Patient is a 57-year-old male with past medical history of ETOH abuse, crack cocaine, who presented to [facility] ED via EMS with possible alcohol withdrawal. According to the ED records the patient has not had alcohol for at least 24 hours and his current presentation is similar to previous episodes of alcohol withdrawal. No harpreet seizure activity noted by EMS en route or in the ED. History is limited due to patient's mental status and most of the history was obtained from reviewing medical records. He was given total Ativan 10 mg since early this morning, in addition to 2 liter boluses of normal saline. His laboratory data significant for elevated alcohol level at 37, elevated CKs 4919 and ammonia level 51. The patient was also noted to have increased LFTs with AST 328, ALT 102, alk phos 288 and total bilirubin 1.4. Due to altered mental status CT scan of brain was obtained which showed no evidence of any acute intracranial pathology. Chest x-ray in the ED showed no acute cardiopulmonary disease as well. 04/20 Patient was placed on Precedex drip overnight for agitation. Afebrile. Subjective 04/21: Tmax 12.7. Currently afebrile. Complaining of "myalgias and joint pain ". Receiving lorazepam for EtOH withdrawal. Objective Vital Signs Date Time Temp Pulse Resp B/P (MAP) Pulse Ox O2 Delivery O2 Flow Rate FiO2 04/21/17 10:00 100 04/21/17 08:34 96 Nasal Cannula 3.00 04/21/17 04:00 99.1 23 139/82 (101) Intake and Output 04/21/17 04/21/17 04/22/17 08:00 16:00 00:00 Intake Total 1100 ml Output Total 650 ml Balance 450 ml Result Diagram: 04/21/1744004/21/17440 Other Results Microbiology Date/Time Source Procedure Growth Status 04/21/17 14:14 Blood Peripheral Aerobic Blood Culture Pending Received 04/21/17 14:14 Blood Peripheral Anaerobic Blood Culture Pending Received Imaging Last Impressions Head CT 04/19/17430 Signed Impressions: Service Date/Time: April 06:26 - CONCLUSION: 1. No evidence of acute intracranial pathology. No masses are identified. Joesph Bailon MD Chest X-Ray 1/11/18 0431 Signed Impressions: Service Date/Time: April 04:37 - CONCLUSION: 1. No acute cardiopulmonary disease. Joesph Bailon MD Liver Ultrasound 04/19/17 0000 Signed Impressions: Service Date/Time: April 10:10 - CONCLUSION: 1. Hepatosplenomegaly with coarse hepatic echotexture which could indicate hepatocellular disease or cys hepatic steatosis. 2. Cholelithiasis with single gallstone and mild wall thickening. There is no evidence of biliary obstruction. Paul Hassan MD Objective Remarks GENERAL: 57-year-old male resting in bed in no acute distress SKIN: Warm and dry. HEAD: Normocephalic. EYES: No scleral icterus. No injection or drainage. NECK: Supple, trachea midline. No JVD or lymphadenopathy. CARDIOVASCULAR: Tachycardic, RR. S1, S2 no S4 without murmur RESPIRATORY: Breath sounds equal bilaterally. No accessory muscle use. GASTROINTESTINAL: Abdomen soft, non-tender, output. Positive hepatosplenomegaly. MUSCULOSKELETAL: No significant peripheral edema NEURO: Cranial nerves II through XII grossly intact. Strength is equal symmetric. Normal sensation Urinary Catheter: No Assessment to: Continue Vascular Central Line Catheter: No Assessment to: Continue A/P Assessment and Plan Neuro/Psych: Acute toxic metabolic encephalopathy secondary to EtOH withdrawal/hyperammonia Possible illicit drug overdose EtOH abuse Oxycodone 5 mg every 6 hours when necessary pain 1-10 Patient is currently on chlordiazepoxide 10 mg by mouth 3 times a day Dexmedetomidine drip as needed to maintain RASS 0 CIWA protocol with lorazepam initiated. 2 mg past [address] brain in the ED showed no acute intracranial pathology. Continue with thiamine, multivitamins and folic acid. ETOH 37 UDS (-) Pulm: Continue with oxygen, maintain sats above 92%. Bronchodilators, aspiration precautions CXR in ED showed no evidence of any acute cardiopulmonary disease. CV: Monitor HR and BP and maintain MAP > 65 mmHg. FEN/renal/: Rhabdomyolysis Hyponatremia Hypophosphatemia Monitor renal function, I&O's accurate Replace electrolytes per ICU electrolyte replacement per protocol On D5NS@84ml/hr, monitor CK's ( trending down) GI: Hyperammonia Elevated LFTs Hepatic steatosis Cholelithiasis Hepatitis C antibody positive. Genotype and viral load pending Hypoalbuminemia Regular diet On famotidine 20 mg by mouth twice daily Monitor LFTs( trending down) US Liver: Hepatosplenomegaly with coarse hepatic echotexture which could indicate hepatocellular disease or cys hepatic steatosis. Cholelithiasis with single gallstone and mild wall thickening. There is no evidence of biliary obstruction. Hepatitis profile: Hep C reactive ab. ID: Pyrexia Monitor for signs of infections ( fever, WBC) His urinalysis is negative for UTI and chest x-ray negative for acute cardiopulmonary disease. Blood cultures 2 ordered 04/21 due to persistent pyrexia Heme: Normocytic anemia Thrombocytopenia Monitor CBC daily. Follow trends Endo: SSI with Accu-Cheks for glycemic control. GI prophylaxis with famotidine 20 mg q. 12 and DVT prophylaxis with SCDs and heparin subcu. Level 2 Naveen Hargrove MD Apr 21, 2017 16:36
[2017-04-21] MEDS: RESP: ALBUTEROL 2.5 MG/3 ML NEB (SCH) NEB ×2 (20:51→22:00)
[2017-04-21] MEDS: FAMOTIDINE 20 MG TAB PO SCH (21:20)
[2017-04-21] MEDS: RESP: ALBUTEROL 2.5 MG/IPRATROPIUM 0.5 MG NEB (SCH) NEB (22:00)
[2017-04-22] VITALS (14 sets, daily range): BP systolic 117–172; BP diastolic 67–97; PULSE 94–125; RESP 23–30; TEMP 98.5–99.5; O2SAT 95–98
[2017-04-22] MEDS: RESP: ALBUTEROL 2.5 MG/3 ML NEB (SCH) NEB (00:08)
[2017-04-22] MEDS: INSULIN NovoLIN REGULAR SUPPLEMENTAL SCALE SQ SCH ×6 (01:45→21:45)
[2017-04-22] MEDS: RESP: ALBUTEROL 2.5 MG/IPRATROPIUM 0.5 MG NEB (SCH) NEB ×4 (03:56→21:00)
[2017-04-22] MEDS: CHLORHEXIDINE GLUCONATE 2 % 1 PACK (2 CLOTHS) TOP SCH (04:00)
[2017-04-22] MEDS: DEXT 5%-NACL 0.9% 1000 ML INJ 1,000 ML IV SCH ×2 (04:15→14:24)
[2017-04-22 06:02] LABS: AUTOMATED NEUTROPHIL # 1.9 TH/MM3 (1.8-7.7); BASOPHIL % 0.6 % (0.0-2.0); EOSINOPHIL # 0.1 TH/MM3 (0-0.4); EOSINOPHIL % 2.8 % (0.0-4.0); HEMATOCRIT 36.5 % (39.0-51.0); HEMOGLOBIN 12.1 GM/DL (13.0-17.0); LYMPH % 25.7 % (9.0-44.0); LYMPHOCYTE # 0.9 TH/MM3 (1.0-4.8); MEAN CELL VOLUME 97.8 FL (80.0-100.0); MEAN CORPUSCULAR HEMOGLOBIN 32.5 PG (27.0-34.0); MEAN CORPUSCULAR HGB CONC 33.2 % (32.0-36.0); MEAN PLATELET VOLUME 8.2 FL (7.0-11.0); MONO % 16.6 % (0.0-8.0); MONOCYTE # 0.6 TH/MM3 (0-0.9); NEUT % 54.3 % (16.0-70.0); PLATELET COUNT 111 TH/MM3 (150-450); RED BLOOD COUNT 3.73 MIL/MM3 (4.50-5.90); RED CELL DISTRIBUTION WIDTH 15.2 % (11.6-17.2); WHITE BLOOD COUNT 3.4 TH/MM3 (4.0-11.0)
[2017-04-22 06:21] LABS: ALBUMIN 2.4 GM/DL (3.4-5.0); ALT (GPT) 61 U/L (12-78); AMYLASE 18 U/L (25-115); AST (GOT) 108 U/L (15-37); BICARBONATE 21.4 MEQ/L (21.0-32.0); BLOOD UREA NITROGEN 6 MG/DL (7-18); CHLORIDE 103 MEQ/L (98-107); CREATININE 0.52 MG/DL (0.60-1.30); GLOMERULAR FILTRATION RATE 164 ML/MIN (>89); GLUCOSE,RANDOM 102 MG/DL (74-106); LIPASE 58 U/L (73-393); MAGNESIUM 1.6 MG/DL (1.5-2.5); SODIUM (NA) 133 MEQ/L (136-145)
[2017-04-22 06:22] LABS: CHOLESTEROL 114 MG/DL (120-200); TRIGLYCERIDES 90 MG/DL (42-150)
[2017-04-22 06:25] LABS: ALKALINE PHOSPHATASE 175 U/L (45-117); CHOLESTEROL/ HDL RATIO 6.51 RATIO; HDL CHOLESTEROL 17.5 MG/DL (40.0-60.0); LDL CHOLESTEROL 79 MG/DL (0-99); PHOSPHORUS 2.5 MG/DL (2.5-4.9); TOTAL BILIRUBIN ADULT 1.3 MG/DL (0.2-1.0); TOTAL PROTEIN 6.6 GM/DL (6.4-8.2)
[2017-04-22] MEDS ORDERED: FOLIC ACID 1 MG TAB PO SCH (09:00)
[2017-04-22] MEDS: FOLIC ACID 1 MG TAB PO SCH (09:20)
[2017-04-22] MEDS: MULTIVITAMIN TAB PO SCH (09:20)
[2017-04-22] MEDS: THIAMINE HCL 100 MG TAB PO SCH (09:20)
[2017-04-22] MEDS: DOCUSATE SODIUM 50 MG/SENNA 8.6 MG TAB PO SCH ×2 (09:20→19:57)
[2017-04-22] MEDS: FAMOTIDINE 20 MG TAB PO SCH ×2 (09:20→19:57)
[2017-04-22] MEDS: HEPARIN SODIUM - SQ 10,000 UNITS/ML VIAL SQ SCH ×2 (09:21→19:57)
[2017-04-22] MEDS: POLYETHYLENE GLYCOL 17 GM PKG PO SCH (09:21)
[2017-04-22] MEDS: LACTULOSE SYRUP 20 GM/30 ML CUP PO SCH ×3 (09:21→18:14)
--- NOTE | 2017-04-22 16:06 | HHI.CCPN ---
Subjective Remarks/Hospital Course Patient is a 57-year-old male with past medical history of ETOH abuse, crack cocaine, who presented to [facility] ED via EMS with possible alcohol withdrawal. According to the ED records the patient has not had alcohol for at least 24 hours and his current presentation is similar to previous episodes of alcohol withdrawal. No harpreet seizure activity noted by EMS en route or in the ED. History is limited due to patient's mental status and most of the history was obtained from reviewing medical records. He was given total Ativan 10 mg since early this morning, in addition to 2 liter boluses of normal saline. His laboratory data significant for elevated alcohol level at 37, elevated CKs 4919 and ammonia level 51. The patient was also noted to have increased LFTs with AST 328, ALT 102, alk phos 288 and total bilirubin 1.4. Due to altered mental status CT scan of brain was obtained which showed no evidence of any acute intracranial pathology. Chest x-ray in the ED showed no acute cardiopulmonary disease as well. 04/20 Patient was placed on Precedex drip overnight for agitation. Afebrile. 04/21: Tmax 102.7. Currently afebrile. Complaining of "myalgias and joint pain ". Receiving lorazepam for EtOH withdrawal. Subjective 04/22: Tmax 100.2. Currently 99.5. More cognizant today. Oriented to person place and time. Less tremulous. Positive BM. Tolerating diet. Objective Vital Signs Date Time Temp Pulse Resp B/P (MAP) Pulse Ox O2 Delivery O2 Flow Rate FiO2 04/22/17 12:00 99.0 101 23 140/79 (99) 98 04/22/17 08:32 Nasal Cannula 3.00 Intake and Output 04/22/17 04/22/17 04/23/17 08:00 16:00 00:00 Intake Total 1041 ml Output Total 1150 ml Balance -109 ml Result Diagram: 04/22/17 0545 04/22/17 0545 Other Results Microbiology Date/Time Source Procedure Growth Status 04/21/17 14:14 Blood Peripheral Aerobic Blood Culture - Preliminary NO GROWTH IN 1 DAY Resulted 04/21/17 14:14 Blood Peripheral Anaerobic Blood Culture - Preliminary NO GROWTH IN 1 DAY Resulted Imaging Last Impressions Head CT 04/19/17 7745 Signed Impressions: Service Date/Time: April 06:26 - CONCLUSION: 1. No evidence of acute intracranial pathology. No masses are identified. Joesph Bailon MD Chest X-Ray 04/19/17 0431 Signed Impressions: Service Date/Time: April 04:37 - CONCLUSION: 1. No acute cardiopulmonary disease. Joesph Bailon MD Liver Ultrasound 04/19/17 0000 Signed Impressions: Service Date/Time: April 10:10 - CONCLUSION: 1. Hepatosplenomegaly with coarse hepatic echotexture which could indicate hepatocellular disease or cys hepatic steatosis. 2. Cholelithiasis with single gallstone and mild wall thickening. There is no evidence of biliary obstruction. Paul Hassan MD Objective Remarks GENERAL: 57-year-old male resting in bed in no acute distress SKIN: Warm and dry. HEAD: Normocephalic. EYES: No scleral icterus. No injection or drainage. NECK: Supple, trachea midline. No JVD or lymphadenopathy. CARDIOVASCULAR: Tachycardic, RR. S1, S2 no S4 without murmur RESPIRATORY: Breath sounds equal bilaterally. No accessory muscle use. GASTROINTESTINAL: Abdomen soft, non-tender, output. Positive hepatosplenomegaly. MUSCULOSKELETAL: No significant peripheral edema NEURO: Cranial nerves II through XII grossly intact. Strength is equal symmetric. Normal sensation A/P Assessment and Plan Neuro/Psych: Acute toxic metabolic encephalopathy secondary to EtOH withdrawal/hyperammonia Possible illicit drug overdose EtOH abuse Oxycodone 5 mg every 6 hours when necessary pain 1-10 Patient is currently on chlordiazepoxide 10 mg by mouth 3 times a day Dexmedetomidine drip as well be discontinued today CIWA protocol with lorazepam initiated. 2 mg past [address] brain in the ED showed no acute intracranial pathology. Continue with thiamine, multivitamins and folic acid. ETOH 37 UDS (-) Pulm: Continue with oxygen, maintain sats above 92%. Bronchodilators, aspiration precautions CXR in ED showed no evidence of any acute cardiopulmonary disease. CV: Monitor HR and BP and maintain MAP > 65 mmHg. FEN/renal/: Rhabdomyolysis Hyponatremia Monitor renal function, I&O's accurate Replace electrolytes per ICU electrolyte replacement per protocol On D5NS@84ml/hr, monitor CK's ( trending down) GI: Hyperammonia Elevated LFTs Hepatic steatosis Cholelithiasis Hepatitis C antibody positive. Genotype and viral load pending Hypoalbuminemia Regular diet On famotidine 20 mg by mouth twice daily Monitor LFTs( trending down) US Liver: Hepatosplenomegaly with coarse hepatic echotexture which could indicate hepatocellular disease or cys hepatic steatosis. Cholelithiasis with single gallstone and mild wall thickening. There is no evidence of biliary obstruction. Hepatitis profile: Hep C reactive ab. On lactulose 30 cc redesignated. Added Xifaxan 550 mill grams twice a day. Recheck ammonia levels in a.m. ID: Pyrexia Monitor for signs of infections ( fever, WBC) His urinalysis is negative for UTI and chest x-ray negative for acute cardiopulmonary disease. Blood cultures 2 ordered 04/21 due to persistent pyrexia Heme: Normocytic anemia Thrombocytopenia Leukopenia Monitor CBC daily. Follow trends Endo: SSI with Accu-Cheks for glycemic control. GI prophylaxis with famotidine 20 mg q. 12 and DVT prophylaxis with SCDs and heparin subcu. Level 2 Patient is stable from a critical care medicine standpoint. Assign care to hospitalist in a.m. 04/23. Transfer from ICU Naveen Hargrove MD Apr 22, 2017 16:06
[2017-04-22] MEDS: RIFAXIMIN 550 MG TAB PO SCH (19:57)
[2017-04-23] VITALS (19 sets, daily range): BP systolic 103–144; BP diastolic 67–84; PULSE 93–123; RESP 22–29; TEMP 98.8–103.6; O2SAT 91–98
[2017-04-23] MEDS: INSULIN NovoLIN REGULAR SUPPLEMENTAL SCALE SQ SCH ×6 (01:45→21:45)
[2017-04-23] MEDS: RESP: ALBUTEROL 2.5 MG/IPRATROPIUM 0.5 MG NEB (SCH) NEB ×4 (03:43→20:06)
[2017-04-23] MEDS: CHLORHEXIDINE GLUCONATE 2 % 1 PACK (2 CLOTHS) TOP SCH (04:00)
[2017-04-23] MEDS: DEXT 5%-NACL 0.9% 1000 ML INJ 1,000 ML IV SCH (05:56)
[2017-04-23 07:05] LABS: AUTOMATED NEUTROPHIL # 2.8 TH/MM3 (1.8-7.7); BASOPHIL % 0.3 % (0.0-2.0); HEMATOCRIT 36.3 % (39.0-51.0); HEMOGLOBIN 12.7 GM/DL (13.0-17.0); LYMPH % 10.9 % (9.0-44.0); LYMPHOCYTE # 0.4 TH/MM3 (1.0-4.8); MEAN CELL VOLUME 97.1 FL (80.0-100.0); MEAN CORPUSCULAR HEMOGLOBIN 33.9 PG (27.0-34.0); MEAN CORPUSCULAR HGB CONC 34.9 % (32.0-36.0); MEAN PLATELET VOLUME 8.1 FL (7.0-11.0); MONO % 10.2 % (0.0-8.0); MONOCYTE # 0.4 TH/MM3 (0-0.9); NEUT % 77.6 % (16.0-70.0); PLATELET COUNT 140 TH/MM3 (150-450); RED BLOOD COUNT 3.74 MIL/MM3 (4.50-5.90); RED CELL DISTRIBUTION WIDTH 14.8 % (11.6-17.2); WHITE BLOOD COUNT 3.7 TH/MM3 (4.0-11.0)
[2017-04-23 07:20] LABS: ALBUMIN 2.5 GM/DL (3.4-5.0); AST (GOT) 112 U/L (15-37); BICARBONATE 21.9 MEQ/L (21.0-32.0); BLOOD UREA NITROGEN 4 MG/DL (7-18); CALCIUM 8.5 MG/DL (8.5-10.1); CHLORIDE 102 MEQ/L (98-107); CREATININE 0.49 MG/DL (0.60-1.30); GLOMERULAR FILTRATION RATE 176 ML/MIN (>89); GLUCOSE,RANDOM 102 MG/DL (74-106); MAGNESIUM 1.6 MG/DL (1.5-2.5); SODIUM (NA) 132 MEQ/L (136-145)
[2017-04-23 07:25] LABS: ALKALINE PHOSPHATASE 203 U/L (45-117); ALT (GPT) 63 U/L (12-78); PHOSPHORUS 2.8 MG/DL (2.5-4.9); TOTAL BILIRUBIN ADULT 1.4 MG/DL (0.2-1.0); TOTAL PROTEIN 6.8 GM/DL (6.4-8.2)
[2017-04-23] MEDS: HEPARIN SODIUM - SQ 10,000 UNITS/ML VIAL SQ SCH ×2 (09:00→21:04)
[2017-04-23] MEDS: THIAMINE HCL 100 MG TAB PO SCH (09:02)
[2017-04-23] MEDS: MULTIVITAMIN TAB PO SCH (09:02)
[2017-04-23] MEDS: RIFAXIMIN 550 MG TAB PO SCH ×2 (09:02→21:04)
[2017-04-23] MEDS: POLYETHYLENE GLYCOL 17 GM PKG PO SCH (09:02)
[2017-04-23] MEDS: LACTULOSE SYRUP 20 GM/30 ML CUP PO SCH ×3 (09:02→18:47)
[2017-04-23] MEDS: DOCUSATE SODIUM 50 MG/SENNA 8.6 MG TAB PO SCH ×2 (09:03→21:04)
[2017-04-23] MEDS: FOLIC ACID 1 MG TAB PO SCH (09:03)
[2017-04-23] MEDS: FAMOTIDINE 20 MG TAB PO SCH ×2 (09:03→21:04)
--- NOTE | 2017-04-23 12:16 | HHI.CCPN ---
Subjective Remarks/Hospital Course Patient is a 57-year-old male with past medical history of ETOH abuse, crack cocaine, who presented to [facility] ED via EMS with possible alcohol withdrawal. According to the ED records the patient has not had alcohol for at least 24 hours and his current presentation is similar to previous episodes of alcohol withdrawal. No harpreet seizure activity noted by EMS en route or in the ED. History is limited due to patient's mental status and most of the history was obtained from reviewing medical records. He was given total Ativan 10 mg since early this morning, in addition to 2 liter boluses of normal saline. His laboratory data significant for elevated alcohol level at 37, elevated CKs 4919 and ammonia level 51. The patient was also noted to have increased LFTs with AST 328, ALT 102, alk phos 288 and total bilirubin 1.4. Due to altered mental status CT scan of brain was obtained which showed no evidence of any acute intracranial pathology. Chest x-ray in the ED showed no acute cardiopulmonary disease as well. 04/20 Patient was placed on Precedex drip overnight for agitation. Afebrile. 04/21: Tmax 102.7. Currently afebrile. Complaining of "myalgias and joint pain ". Receiving lorazepam for EtOH withdrawal. Subjective 04/22: Tmax 100.2. Currently 99.5. More cognizant today. Oriented to person place and time. Less tremulous. Positive BM. Tolerating diet. 04/23: Lying in bed, oriented. But spiking fever 102.8, pancytopenic. Oriented alert. Panculture and Flu ag ordered Objective Vital Signs Date Time Temp Pulse Resp B/P (MAP) Pulse Ox O2 Delivery O2 Flow Rate FiO2 04/23/17 11:16 102.8 122 24 142/80 (100) 97 04/22/17 21:00 21 04/22/17 08:32 Nasal Cannula 3.00 Intake and Output 04/23/17 04/23/17 04/24/17 08:00 16:00 00:00 Intake Total 1640 ml Output Total 1300 ml Balance 340 ml Result Diagram: 04/23/17 0640 04/23/17 0640 Imaging Last Impressions Head CT 04/19/17 0431 Signed Impressions: Service Date/Time: April 06:26 - CONCLUSION: 1. No evidence of acute intracranial pathology. No masses are identified. Joesph Bailon MD Chest X-Ray 04/19/17 0431 Signed Impressions: Service Date/Time: April 04:37 - CONCLUSION: 1. No acute cardiopulmonary disease. Joesph Bailon MD Liver Ultrasound 04/19/17 0000 Signed Impressions: Service Date/Time: , April 19, 2017 10:10 - CONCLUSION: 1. Hepatosplenomegaly with coarse hepatic echotexture which could indicate hepatocellular disease or cys hepatic steatosis. 2. Cholelithiasis with single gallstone and mild wall thickening. There is no evidence of biliary obstruction. Paul Hassan MD Objective Remarks GENERAL: 57-year-old male resting in bed in no acute distress SKIN: Warm and dry. Febrile HEAD: Normocephalic. EYES: No scleral icterus. No injection or drainage. NECK: Supple, trachea midline. No JVD or lymphadenopathy. CARDIOVASCULAR: Tachycardic, RR. S1, S2 no S4 without murmur RESPIRATORY: Breath sounds equal bilaterally. No accessory muscle use. GASTROINTESTINAL: Abdomen soft, non-tender. Positive hepatosplenomegaly. MUSCULOSKELETAL: No significant peripheral edema NEURO: Cranial nerves II through XII grossly intact. Strength is equal symmetric. Normal sensation A/P Assessment and Plan Neuro/Psych: Acute toxic metabolic encephalopathy secondary to EtOH withdrawal/hyperammonia Possible illicit drug overdose EtOH abuse Oxycodone 5 mg every 6 hours when necessary pain 1-10 Patient is currently on chlordiazepoxide 10 mg by mouth 3 times a day Dexmedetomidine dcd yesterday CIWA protocol with lorazepam initiated CT brain in the ED showed no acute intracranial pathology. Continue with thiamine, multivitamins and folic acid. ETOH 37, UDS (-) Pulm: Continue with oxygen, maintain sats above 92%. Bronchodilators, aspiration precautions CXR in ED showed no evidence of any acute cardiopulmonary disease. Repeat CXR due to fever CV: Monitor HR and BP and maintain MAP > 65 mmHg. FEN/renal/: Rhabdomyolysis Hyponatremia Monitor renal function, I&O's accurate Replace electrolytes per ICU electrolyte replacement per protocol On D5NS@84ml/hr, monitor CK's ( trending down) GI: Hyperammonemia Elevated LFTs Hepatic steatosis Cholelithiasis Hepatitis C antibody positive. Genotype and viral load pending Hypoalbuminemia Regular diet. On famotidine 20 mg by mouth twice daily Monitor LFTs( trending down) US Liver: Hepatosplenomegaly with hepatic steatosis. Cholelithiasis with single gallstone and mild wall thickening. No biliary obstruction. Hepatitis profile: Hep C reactive ab. On lactulose 30 cc redesignated. Xifaxan 550 mg twice a day. Recheck ammonia levels in a.m. ID: Pyrexia, fever 102.8 Repeat blood culture x2, sputum cx, urine cx. Check for influenza His urinalysis is negative for UTI and chest x-ray negative for acute cardiopulmonary disease. Blood cultures 2 ordered 04/[address] abd pelvis re ascites, source of infection Heme: Normocytic anemia Thrombocytopenia Leukopenia Monitor CBC daily. Follow trends Endo: SSI with Accu-Cheks for glycemic control. GI prophylaxis with famotidine 20 mg q. 12 and DVT prophylaxis with SCDs and heparin subcu. Level 3 Developed high fever, MAXIMUM TEMPERATURE 103. Panculture ordered. Ct abd pelvis evaluate for ascites, other source of infection. Hold transfer out due to high fever Kieran Medrano MD Apr 23, 2017 12:16
[2017-04-23] MEDS ORDERED: IOHEXOL 350 MG/ML 10 ML VIAL (for RAD DIAG) IVCONTRAST ONE (13:29)
--- NOTE | 2017-04-23 13:49 | RADRPT ---
EXAM DATE/TIME: 04/23/2017 13:25 [facility] COMPARISON: No previous studies available for comparison. INDICATIONS : Sepsis, ascites IV CONTRAST: 95 cc Omnipaque 350 (iohexol) IV ORAL CONTRAST: No oral contrast ingested. RADIATION DOSE: 5.4 CTDIvol (mGy) MEDICAL HISTORY : None Hernia, inguinal. SURGICAL HISTORY : Inguinal hernia repair. ENCOUNTER: Initial ACUITY: 1 day PAIN SCALE: 4/10 LOCATION: Abdomen TECHNIQUE: Volumetric scanning of the abdomen and pelvis was performed. Using automated exposure control and ad justment of the mA and/or kV according to patient size, radiation dose was kept as low as reasonably achievable to obtain optimal diagnostic quality images. DICOM format image data is available electro nically for review and comparison. FINDINGS: LOWER LUNGS: There is a small posterior layering left pleural effusion with adjacent minimal compressive atelectas is. LIVER: Homogeneous density without lesion. There is no dilation of the biliary tree gallbladder is seen as a luminal structure with a posterior layering punctate solitary stone. SPLEEN: Normal size without lesion. PANCREAS: Within normal limits. KIDNEYS: Normal in size and shape. There is no stone or hydronephrosis. 1.5 cm cortical cyst laterally of the left kidney. ADRENAL GLANDS: Within normal limits. VASCULAR: There is no aortic aneurysm. BOWEL/MESENTERY: The stomach, small bowel, and colon demonstrate no acute abnormality. There is no free intraperitone al air or fluid. ABDOMINAL WALL: Within normal limits. RETROPERITONEUM: There is no lymphadenopathy. BLADDER: No wall thickening or mass. REPRODUCTIVE: Within normal limits. INGUINAL: There is no lymphadenopathy or hernia. MUSCULOSKELETAL: Within normal limits for patient age. CONCLUSION: Small posterior layering left pleural effusion with minimal adjacent compressive atelectasis. Punctate posterior layering gallstone 1.5 cm cyst cortex of the left kidney . Fatty metamorphosis of the liver Keanu Valadez MD on April 23, 2017 at 13:41 Board Certified Radiologist. This report was verified electronically.
[2017-04-23] MEDS: LORazepam 2 MG TAB PO PRN ×2 (14:19→22:15)
[2017-04-23] MEDS: HALOPERIDOL LACTATE 5 MG/ML AMP IM PRN ×2 (14:20→22:56)
--- NOTE | 2017-04-23 14:21 | RADRPT ---
EXAM DATE/TIME: 04/23/2017 12:56 [facility] COMPARISON: CT ABDOMEN & PELVIS W CONTRAST, April 23, 2017, 13:25. CHEST SINGLE AP, April 19, 2017, 4:37. INDICATIONS : Shortness of breath. MEDICAL HISTORY : None. SURGICAL HISTORY : Inguinal hernia repair. ENCOUNTER: Initial ACUITY: 1 day PAIN SCORE: 0/10 LOCATION: Bilateral chest FINDINGS: Portable AP view of the chest demonstrates a normal-sized cardiac silhouette. Multiple EKG lines over lie the patient. Lungs are mildly underinflated. There are mild interstitial opacities at the lung ba ses. No pleural effusion or pneumothorax is identified. The bones and soft tissues demonstrate no acu te finding. There is a stable ununited left distal clavicle fracture. CONCLUSION: 1. Mild interstitial opacity in the lower lung zones bilaterally could represent atelectasis or could represent a mild interstitial process is pulmonary edema. The CT examination performed today documen ts a trace left pleural effusion is not visible by x-ray. 2. Stable ununited left distal clavicle fracture. Mitchell Mccartney MD on April 23, 2017 at 14:13 Board Certified Radiologist. This report was verified electronically.
[2017-04-23] MEDS: ACETAMINOPHEN 1000 MG/100 ML 100 ML IV PRN ×2 (14:52→23:30)
[2017-04-23] MEDS: POTASSIUM CHLOR 20 MEQ PREMIX 100 ML IV PRN ×2 (20:30→22:33)
[2017-04-23] MEDS: LORazepam 2 MG/ML VIAL IV PUSH PRN ×2 (21:58→22:35)
[2017-04-23] MEDS ORDERED: DEXMEDETOMIDINE INJ 200 MCG in SODIUM CHLORIDE 0.9% INJ 50 ML IV PRN (23:15)
[2017-04-24] VITALS (14 sets, daily range): BP systolic 99–125; BP diastolic 60–75; PULSE 95–124; RESP 22–48; TEMP 97.4–100.7; O2SAT 92–100
[2017-04-24] MEDS: INSULIN NovoLIN REGULAR SUPPLEMENTAL SCALE SQ SCH ×6 (01:45→21:45)
[2017-04-24] MEDS: RESP: ALBUTEROL 2.5 MG/IPRATROPIUM 0.5 MG NEB (SCH) NEB ×4 (03:41→19:39)
[2017-04-24] MEDS: CHLORHEXIDINE GLUCONATE 2 % 1 PACK (2 CLOTHS) TOP SCH (04:00)
--- NOTE | 2017-04-24 05:16 | RADRPT ---
EXAM DATE/TIME: 04/24/2017 04:22 [facility] COMPARISON: CT ABDOMEN & PELVIS W CONTRAST, April 23, 2017, 13:25. CHEST SINGLE AP, April 23, 2017, 12:56. INDICATIONS : Short of breath. MEDICAL HISTORY : None. SURGICAL HISTORY : Inguinal hernia repair. ENCOUNTER: Subsequent ACUITY: 1 week PAIN SCORE: 0/10 LOCATION: Bilateral chest FINDINGS: The heart size is normal. There is increased density in the left perihilar region. The right lung is grossly clear. The costophrenic angles are grossly clear. There is fracturing of the lateral left cla vicle. CONCLUSION: Left perihilar consolidation or atelectasis Mitchell Mackay MD on April 24, 2017 at 5:13 Board Certified Radiologist. This report was verified electronically.
[2017-04-24 07:11] LABS: AUTOMATED NEUTROPHIL # 2.7 TH/MM3 (1.8-7.7); BASOPHIL % 0.4 % (0.0-2.0); EOSINOPHIL % 0.2 % (0.0-4.0); HEMATOCRIT 35.9 % (39.0-51.0); HEMOGLOBIN 12.1 GM/DL (13.0-17.0); LYMPH % 14.9 % (9.0-44.0); LYMPHOCYTE # 0.6 TH/MM3 (1.0-4.8); MEAN CORPUSCULAR HGB CONC 33.6 % (32.0-36.0); MEAN PLATELET VOLUME 7.7 FL (7.0-11.0); MONO % 13.8 % (0.0-8.0); MONOCYTE # 0.5 TH/MM3 (0-0.9); NEUT % 70.7 % (16.0-70.0); PLATELET COUNT 120 TH/MM3 (150-450); RED BLOOD COUNT 3.66 MIL/MM3 (4.50-5.90); RED CELL DISTRIBUTION WIDTH 15.2 % (11.6-17.2); WHITE BLOOD COUNT 3.8 TH/MM3 (4.0-11.0)
[2017-04-24 07:44] LABS: ALBUMIN 2.3 GM/DL (3.4-5.0); AST (GOT) 124 U/L (15-37); BICARBONATE 24.4 MEQ/L (21.0-32.0); BLOOD UREA NITROGEN 6 MG/DL (7-18); CALCIUM 8.2 MG/DL (8.5-10.1); CHLORIDE 104 MEQ/L (98-107); CREATININE 0.38 MG/DL (0.60-1.30); GLOMERULAR FILTRATION RATE 236 ML/MIN (>89); GLUCOSE,RANDOM 90 MG/DL (74-106); SODIUM (NA) 136 MEQ/L (136-145)
[2017-04-24 07:45] LABS: ALT (GPT) 61 U/L (12-78)
[2017-04-24 07:59] LABS: ALKALINE PHOSPHATASE 176 U/L (45-117); TOTAL BILIRUBIN ADULT 0.9 MG/DL (0.2-1.0); TOTAL PROTEIN 6.7 GM/DL (6.4-8.2)
[2017-04-24] MEDS: POLYETHYLENE GLYCOL 17 GM PKG PO SCH (08:20)
[2017-04-24] MEDS: FAMOTIDINE 20 MG TAB PO SCH ×2 (08:20→20:37)
[2017-04-24] MEDS: LACTULOSE SYRUP 20 GM/30 ML CUP PO SCH ×3 (08:20→16:53)
[2017-04-24] MEDS: RIFAXIMIN 550 MG TAB PO SCH ×2 (08:20→20:37)
[2017-04-24] MEDS: DOCUSATE SODIUM 50 MG/SENNA 8.6 MG TAB PO SCH ×2 (08:20→19:57)
[2017-04-24] MEDS: POTASSIUM CHLORIDE 25 MEQ EFFERVESCENT TAB PO PRN (08:21)
[2017-04-24] MEDS: THIAMINE HCL 100 MG TAB PO SCH (08:21)
[2017-04-24] MEDS: FOLIC ACID 1 MG TAB PO SCH (08:21)
[2017-04-24] MEDS: MULTIVITAMIN TAB PO SCH (08:21)
[2017-04-24] MEDS ORDERED: VANCOMYCIN INJ 200 ML IV ONE (08:45)
--- NOTE | 2017-04-24 08:46 | HHI.CCPN ---
Subjective Remarks/Hospital Course Patient is a 57-year-old male with past medical history of ETOH abuse, crack cocaine, who presented to [facility] ED via EMS with possible alcohol withdrawal. According to the ED records the patient has not had alcohol for at least 24 hours and his current presentation is similar to previous episodes of alcohol withdrawal. No harpreet seizure activity noted by EMS en route or in the ED. History is limited due to patient's mental status and most of the history was obtained from reviewing medical records. He was given total Ativan 10 mg since early this morning, in addition to 2 liter boluses of normal saline. His laboratory data significant for elevated alcohol level at 37, elevated CKs 4919 and ammonia level 51. The patient was also noted to have increased LFTs with AST 328, ALT 102, alk phos 288 and total bilirubin 1.4. Due to altered mental status CT scan of brain was obtained which showed no evidence of any acute intracranial pathology. Chest x-ray in the ED showed no acute cardiopulmonary disease as well. 04/20 Patient was placed on Precedex drip overnight for agitation. Afebrile. 04/21: Tmax 102.7. Currently afebrile. Complaining of "myalgias and joint pain ". Receiving lorazepam for EtOH withdrawal. Subjective 04/22: Tmax 100.2. Currently 99.5. More cognizant today. Oriented to person place and time. Less tremulous. Positive BM. Tolerating diet. 04/23: Lying in bed, oriented. But spiking fever 102.8, pancytopenic. Oriented alert. Panculture and Flu ag ordered 04/24 Patient is lying in bed in NAD. Awake and alert. T:1max 103.6 last night. Objective Vital Signs Date Time Temp Pulse Resp B/P (MAP) Pulse Ox O2 Delivery O2 Flow Rate FiO2 04/24/17 06:00 99 04/24/17 04:00 97.4 22 100/60 (73) 95 04/23/17 20:07 21 04/22/17 08:32 Nasal Cannula 3.00 Intake and Output 04/24/17 04/24/17 04/25/17 08:00 16:00 00:00 Intake Total 240 ml Output Total 1300 ml Balance -1060 ml Result Diagram: 04/24/17 0653 04/24/17 0655 Other Results Laboratory Tests Test 04/24/17 06:53 04/24/17 06:55 White Blood Count 3.8 TH/MM3 Red Blood Count 3.66 MIL/MM3 Hemoglobin 12.1 GM/DL Hematocrit 35.9 % Mean Corpuscular Volume 98.0 FL Mean Corpuscular Hemoglobin 33.0 PG Mean Corpuscular Hemoglobin Concent 33.6 % Red Cell Distribution Width 15.2 % Platelet Count 120 TH/MM3 Mean Platelet Volume 7.7 FL Neutrophils (%) (Auto) 70.7 % Lymphocytes (%) (Auto) 14.9 % Monocytes (%) (Auto) 13.8 % Eosinophils (%) (Auto) 0.2 % Basophils (%) (Auto) 0.4 % Neutrophils # (Auto) 2.7 TH/MM3 Lymphocytes # (Auto) 0.6 TH/MM3 Monocytes # (Auto) 0.5 TH/MM3 Eosinophils # (Auto) 0.0 TH/MM3 Basophils # (Auto) 0.0 TH/MM3 CBC Comment DIFF FINAL Differential Comment Blood Urea Nitrogen 6 MG/DL Creatinine 0.38 MG/DL Random Glucose 90 MG/DL Total Protein 6.7 GM/DL Albumin 2.3 GM/DL Calcium Level 8.2 MG/DL Alkaline Phosphatase 176 U/L Aspartate Amino Transf (AST/SGOT) 124 U/L Alanine Aminotransferase (ALT/SGPT) 61 U/L Total Bilirubin 0.9 MG/DL Sodium Level 136 MEQ/L Potassium Level 3.3 MEQ/L Chloride Level 104 MEQ/L Carbon Dioxide Level 24.4 MEQ/L Anion Gap 8 MEQ/L Estimat Glomerular Filtration Rate 236 ML/MIN Total Creatine Kinase 1088 U/L Creatine Kinase MB 3.4 NG/ML Creatine Kinase MB % 0.3 % Imaging Last Impressions Chest X-Ray 04/24/17 0600 Signed Impressions: Service Date/Time: Monday, April 24, 2017 04:22 - CONCLUSION: Left perihilar consolidation or atelectasis Mitchell Mackay MD Abdomen/Pelvis CT 04/23/17 0000 Signed Impressions: Service Date/Time: Sunday, April 23, 2017 13:25 - CONCLUSION: Small posterior layering left pleural effusion with minimal adjacent compressive atelectasis. Punctate posterior layering gallstone 1.5 cm cyst cortex of the left kidney . Fatty metamorphosis of the liver Keanu Valadez MD Head CT 04/19/17 0431 Signed Impressions: Service Date/Time: April 06:26 - CONCLUSION: 1. No evidence of acute intracranial pathology. No masses are identified. Joesph Bailon MD Liver Ultrasound 04/19/17 0000 Signed Impressions: Service Date/Time: April 10:10 - CONCLUSION: 1. Hepatosplenomegaly with coarse hepatic echotexture which could indicate hepatocellular disease or cys hepatic steatosis. 2. Cholelithiasis with single gallstone and mild wall thickening. There is no evidence of biliary obstruction. Paul Hassan MD Objective Remarks GENERAL: 57-year-old male resting in bed in no acute distress SKIN: Warm and dry. Febrile HEAD: Normocephalic. EYES: No scleral icterus. No injection or drainage. NECK: Supple, trachea midline. No JVD or lymphadenopathy. CARDIOVASCULAR: Tachycardic, RR. S1, S2 no S4 without murmur RESPIRATORY: Breath sounds equal bilaterally. No accessory muscle use. GASTROINTESTINAL: Abdomen soft, non-tender. Positive hepatosplenomegaly. MUSCULOSKELETAL: No significant peripheral edema NEURO: Cranial nerves II through XII grossly intact. Strength is equal symmetric. Normal sensation A/P Assessment and Plan Neuro/Psych: Acute toxic metabolic encephalopathy secondary to EtOH withdrawal/hyperammonia Possible illicit drug overdose EtOH abuse Oxycodone 5 mg every 6 hours when necessary pain 1-10 Patient is currently on chlordiazepoxide 10 mg by mouth 3 times a day CIWA protocol with lorazepam initiated CT brain in the ED showed no acute intracranial pathology. Continue with thiamine, multivitamins and folic acid. ETOH 37, UDS (-) Pulm: Continue with oxygen, maintain sats above 92%. Bronchodilators, aspiration precautions CXR in ED showed no evidence of any acute cardiopulmonary disease. CXR today: Left perihilar consolidation/atelectasis CV: Monitor HR and BP and maintain MAP > 65 mmHg. FEN/renal/: Rhabdomyolysis Hyponatremia Monitor renal function, I&O's accurate Replace electrolytes per ICU electrolyte replacement per protocol Resume D5NS@84ml/hr. Will need K replacement today GI: Hyperammonemia Elevated LFTs Hepatic steatosis Cholelithiasis Hepatitis C antibody positive. Genotype and viral load pending Hypoalbuminemia Regular diet. On famotidine 20 mg by mouth twice daily Monitor LFTs( trending down) US Liver: Hepatosplenomegaly with hepatic steatosis. Cholelithiasis with single gallstone and mild wall thickening. No biliary obstruction. Hepatitis profile: Hep C reactive ab. On lactulose 30 cc redesignated. Xifaxan 550 mg twice a day. Ammonia level 45 yesterday ID: Pyrexia, Repeat blood culture x2, sputum cx, urine cx. 04/23 Check strep pneumonia and Legionella urinary Ag Nasal washing negative for Influenza Blood cultures 2 ordered 04/[address] on empiric abx ( Zosyn) give vanco 1gram x1 CT abd/pelvis: Small posterior layering left pleural effusion with minimal adjacent compressive atelectasis. Punctate posterior layering gallstone,1.5 cm cyst cortex of the left kidney . Fatty metamorphosis of the liver Heme: Normocytic anemia Thrombocytopenia Leukopenia Monitor CBC daily. Follow trends Endo: SSI with Accu-Cheks for glycemic control. GI prophylaxis with famotidine 20 mg q. 12 and DVT prophylaxis with SCDs and heparin subcu. Level 3 Adriano Luna MD Apr 24, 2017 08:46
[2017-04-24] MEDS ORDERED: VANCOMYCIN 1,000 MG/NS 250 ML IV ONE ×2 (09:00)
[2017-04-24] MEDS: DEXT 5%-NACL 0.9% 1000 ML INJ 1,000 ML IV SCH ×2 (10:02→20:37)
[2017-04-24] MEDS: PIPERACIL-TAZO 4.5 GM PREMIX 100 ML IV SCH ×3 (10:02→20:37)
[2017-04-24] MEDS: ACETAMINOPHEN 1000 MG/100 ML 100 ML IV PRN (20:38)
[2017-04-25] VITALS (16 sets, daily range): BP systolic 90–139; BP diastolic 55–87; PULSE 86–108; RESP 14–28; TEMP 97.7–99; O2SAT 90–98
[2017-04-25] MEDS: INSULIN NovoLIN REGULAR SUPPLEMENTAL SCALE SQ SCH ×6 (01:45→21:45)
[2017-04-25] MEDS: PIPERACIL-TAZO 4.5 GM PREMIX 100 ML IV SCH ×4 (01:56→20:05)
[2017-04-25] MEDS: CHLORHEXIDINE GLUCONATE 2 % 1 PACK (2 CLOTHS) TOP SCH (04:00)
[2017-04-25] MEDS: RESP: ALBUTEROL 2.5 MG/IPRATROPIUM 0.5 MG NEB (SCH) NEB ×4 (04:06→20:00)
[2017-04-25] MEDS: RIFAXIMIN 550 MG TAB PO SCH ×2 (08:05→20:05)
[2017-04-25] MEDS: THIAMINE HCL 100 MG TAB PO SCH (08:05)
[2017-04-25] MEDS: FOLIC ACID 1 MG TAB PO SCH (08:05)
[2017-04-25] MEDS: MULTIVITAMIN TAB PO SCH (08:05)
[2017-04-25] MEDS: FAMOTIDINE 20 MG TAB PO SCH ×2 (08:05→20:05)
[2017-04-25] MEDS: DOCUSATE SODIUM 50 MG/SENNA 8.6 MG TAB PO SCH ×2 (08:06→20:05)
[2017-04-25] MEDS: LACTULOSE SYRUP 20 GM/30 ML CUP PO SCH ×3 (08:06→18:26)
[2017-04-25] MEDS: POLYETHYLENE GLYCOL 17 GM PKG PO SCH (08:06)
[2017-04-25 08:45] LABS: HEMATOCRIT 34.4 % (39.0-51.0); HEMOGLOBIN 11.7 GM/DL (13.0-17.0); MEAN CELL VOLUME 97.8 FL (80.0-100.0); MEAN CORPUSCULAR HEMOGLOBIN 33.4 PG (27.0-34.0); MEAN CORPUSCULAR HGB CONC 34.1 % (32.0-36.0); MEAN PLATELET VOLUME 8.1 FL (7.0-11.0); PLATELET COUNT 129 TH/MM3 (150-450); RED BLOOD COUNT 3.52 MIL/MM3 (4.50-5.90); RED CELL DISTRIBUTION WIDTH 15.1 % (11.6-17.2); WHITE BLOOD COUNT 3.5 TH/MM3 (4.0-11.0)
[2017-04-25 09:09] LABS: ALBUMIN 2.1 GM/DL (3.4-5.0); AST (GOT) 114 U/L (15-37); BICARBONATE 25.8 MEQ/L (21.0-32.0); BLOOD UREA NITROGEN 6 MG/DL (7-18); CALCIUM 7.9 MG/DL (8.5-10.1); CHLORIDE 106 MEQ/L (98-107); CREATININE 0.43 MG/DL (0.60-1.30); GLOMERULAR FILTRATION RATE 205 ML/MIN (>89); GLUCOSE,RANDOM 93 MG/DL (74-106); MAGNESIUM 1.7 MG/DL (1.5-2.5); SODIUM (NA) 138 MEQ/L (136-145)
[2017-04-25 09:10] LABS: ALT (GPT) 57 U/L (12-78)
[2017-04-25 09:13] LABS: ALKALINE PHOSPHATASE 161 U/L (45-117); PHOSPHORUS 2.8 MG/DL (2.5-4.9); TOTAL BILIRUBIN ADULT 0.7 MG/DL (0.2-1.0); TOTAL PROTEIN 6.1 GM/DL (6.4-8.2)
[2017-04-25 09:30] LABS: BANDS 10 % (0-6); LYMPHOCYTES 22 % (9-44); MONOCYTES 14 % (0-8); NEUTROPHIL # MANUAL DIFF 2.2 TH/MM3 (1.8-7.7); POLYS (SEG NEUTROPHILS) 54 % (16-70)
[2017-04-25 09:31] LABS: TARGET CELLS 1+ (NORMAL)
--- NOTE | 2017-04-25 11:21 | HHI.CCPN ---
Subjective Remarks/Hospital Course Patient is a 57-year-old male with past medical history of ETOH abuse, crack cocaine, who presented to [facility] ED via EMS with possible alcohol withdrawal. According to the ED records the patient has not had alcohol for at least 24 hours and his current presentation is similar to previous episodes of alcohol withdrawal. No harpreet seizure activity noted by EMS en route or in the ED. History is limited due to patient's mental status and most of the history was obtained from reviewing medical records. He was given total Ativan 10 mg since early this morning, in addition to 2 liter boluses of normal saline. His laboratory data significant for elevated alcohol level at 37, elevated CKs 4919 and ammonia level 51. The patient was also noted to have increased LFTs with AST 328, ALT 102, alk phos 288 and total bilirubin 1.4. Due to altered mental status CT scan of brain was obtained which showed no evidence of any acute intracranial pathology. Chest x-ray in the ED showed no acute cardiopulmonary disease as well. 04/20 Patient was placed on Precedex drip overnight for agitation. Afebrile. 04/21: Tmax 102.7. Currently afebrile. Complaining of "myalgias and joint pain ". Receiving lorazepam for EtOH withdrawal. Subjective 04/22: Tmax 100.2. Currently 99.5. More cognizant today. Oriented to person place and time. Less tremulous. Positive BM. Tolerating diet. 04/23: Lying in bed, oriented. But spiking fever 102.8, pancytopenic. Oriented alert. Panculture and Flu ag ordered 04/24 Patient is lying in bed in NAD. Awake and alert. T:1max 103.6 last night. 04/25: Resting in bed comfortably. Not in any acute distress. Objective Vital Signs Date Time Temp Pulse Resp B/P (MAP) Pulse Ox O2 Delivery O2 Flow Rate FiO2 04/25/17 08:00 98.7 103 25 127/82 (97) 90 04/24/17 19:39 21 04/24/17 11:55 Nasal Cannula 4.00 Intake and Output 04/25/17 04/25/17 04/26/17 08:00 16:00 00:00 Intake Total 1038 ml Output Total 1000 ml Balance 38 ml Result Diagram: 04/25/17 0750 04/25/17 0750 Other Results Microbiology Date/Time Source Procedure Growth Status 04/23/17 13:50 Nasal Washing Influenza Types A,B Antigen (PHOEBE) - Final NEGATIVE FOR FLU A AND B ANTIGEN.... Complete Imaging Last Impressions Chest X-Ray 04/24/17 0600 Signed Impressions: Service Date/Time: Monday, April 24, 2017 04:22 - CONCLUSION: Left perihilar consolidation or atelectasis Mitchell Mackay MD Abdomen/Pelvis CT 04/23/17 0000 Signed Impressions: Service Date/Time: Sunday, April 23, 2017 13:25 - CONCLUSION: Small posterior layering left pleural effusion with minimal adjacent compressive atelectasis. Punctate posterior layering gallstone 1.5 cm cyst cortex of the left kidney . Fatty metamorphosis of the liver Keanu Valadez MD Head CT 04/19/17 0431 Signed Impressions: Service Date/Time: April 06:26 - CONCLUSION: 1. No evidence of acute intracranial pathology. No masses are identified. Joesph Bailon MD Liver Ultrasound 04/19/17 0000 Signed Impressions: Service Date/Time: April 10:10 - CONCLUSION: 1. Hepatosplenomegaly with coarse hepatic echotexture which could indicate hepatocellular disease or cys hepatic steatosis. 2. Cholelithiasis with single gallstone and mild wall thickening. There is no evidence of biliary obstruction. Paul Hassan MD Objective Remarks GENERAL: 57-year-old male resting in bed in no acute distress SKIN: Warm and dry. Febrile HEAD: Normocephalic. EYES: No scleral icterus. No injection or drainage. NECK: Supple, trachea midline. No JVD or lymphadenopathy. CARDIOVASCULAR: Tachycardic, RR. S1, S2 no S4 without murmur RESPIRATORY: Breath sounds equal bilaterally. No accessory muscle use. GASTROINTESTINAL: Abdomen soft, non-tender. Positive hepatosplenomegaly. MUSCULOSKELETAL: No significant peripheral edema NEURO: Awake and alert, nonfocal grossly. A/P Assessment and Plan Neuro/Psych: Acute toxic metabolic encephalopathy secondary to EtOH withdrawal/hyperammonia Possible illicit drug overdose EtOH abuse Oxycodone 5 mg every 6 hours when necessary pain 1-10 Patient is currently on chlordiazepoxide 10 mg by mouth 3 times a day CIWA protocol with lorazepam initiated CT brain in the ED showed no acute intracranial pathology. Continue with thiamine, multivitamins and folic acid. ETOH 37, UDS (-) Pulm: Continue with oxygen, maintain sats above 92%. Bronchodilators, aspiration precautions CXR in ED showed no evidence of any acute cardiopulmonary disease. CXR today: Left perihilar consolidation/atelectasis CV: Monitor HR and BP and maintain MAP > 65 mmHg. FEN/renal/: Rhabdomyolysis Hyponatremia Monitor renal function, I&O's accurate Replace electrolytes per ICU electrolyte replacement per protocol Resume D5NS@84ml/hr. Will need K replacement today GI: Hyperammonemia Elevated LFTs Hepatic steatosis Cholelithiasis Hepatitis C antibody positive. Genotype and viral load pending Hypoalbuminemia Regular diet. On famotidine 20 mg by mouth twice daily Monitor LFTs( trending down) US Liver: Hepatosplenomegaly with hepatic steatosis. Cholelithiasis with single gallstone and mild wall thickening. No biliary obstruction. Hepatitis profile: Hep C reactive ab. On lactulose 30 cc redesignated. Xifaxan 550 mg twice a day. Ammonia level 45 yesterday ID: Pyrexia, Repeat blood culture x2, sputum cx, urine cx. 04/23 Check strep pneumonia and Legionella urinary Ag Nasal washing negative for Influenza Blood cultures 2 ordered 04/[address] on empiric abx ( Zosyn) give vanco 1gram x1 CT abd/pelvis: Small posterior layering left pleural effusion with minimal adjacent compressive atelectasis. Punctate posterior layering gallstone,1.5 cm cyst cortex of the left kidney . Fatty metamorphosis of the liver Heme: Normocytic anemia Thrombocytopenia Leukopenia Monitor CBC daily. Follow trends Endo: SSI with Accu-Cheks for glycemic control. GI prophylaxis with famotidine 20 mg q. 12 and DVT prophylaxis with SCDs and heparin subcu. Consult and transfer to hospitalist service for further medical management. Transfer out of ICU. Level 3 Jovon Hare MD Apr 25, 2017 11:21
[2017-04-25 11:52] LABS: HCV RNA PCR IU/ML 594000 IU/mL (0-14)
--- NOTE | 2017-04-25 14:16 | PD.PSY.CON ---
Provisional Diagnosis Admission Date Apr 19, 2017 at 07:00 [place] I. Alcohol induced mood disorder, alcohol use disorder, cannabis use disorder, history of depression [place] II. Deferred History of Present Illness Service Psychiatry Consult Requested By ICU team Reason for Consult Under Leigh act Primary Care Physician No Primary Care Physician HPI The patient is a 57-year-old man, domiciled with his schizophrenia [place], unemployed, on SSI process, with psychiatric history of depression, 1 previous psychiatric hospitalizations, 2 previous suicide attempts by overdose, extensive history of alcohol use disorder, cocaine use disorder, he has been under Leigh act before due to drug related issues, with past medical history of knee pain, who presented to [facility] ED via EMS with possible alcohol withdrawal. According to the ED records the patient has not had alcohol for at least 24 hours and his current presentation is similar to previous episodes of alcohol withdrawal. No harpreet seizure activity noted by EMS en route or in the ED. His laboratory data significant for elevated alcohol level at 37, elevated CKs 4919 and ammonia level 51. The patient was also noted to have increased LFTs with AST 328, ALT 102, alk phos 288 and total bilirubin 1.4. Due to altered mental status CT scan of brain was obtained which showed no evidence of any acute intracranial pathology. He was consulted to psychiatry due to initial suicidal ideation and he was Leigh acted. Evaluation today the patient is calm, cooperative, logical, coherent and relevant. Patient is fully oriented 3. He says that he does not remember making any suicidal statement. He says that all he remembers is that he was completely drunk he came to the hospital. No remember the circumstances of his hospitalization. He denies depressive symptoms, he denies anxiety, he denies anhedonia, hopelessness, helplessness, suicidal and homicidal ideation, he denies visual and auditory hallucinations. The patient reports almost daily use of alcohol, occasional use of cocaine and cannabis. He reports history of alcohol withdrawal and seizures in the past. Review of Systems Constitutional: DENIES: Diaphoretic episodes, Fatigue, Fever, Weight gain, Weight loss, Chills, Dizziness, Change in appetite, Night Sweats Endocrine: DENIES: Heat/cold intolerance, Polydipsia, Polyuria, Polyphagia Eyes: DENIES: Blurred vision, Diplopia, Eye inflammation, Eye pain, Vision loss , Photosensitivity, Double Vision Ears, nose, mouth, throat: DENIES: Tinnitus, Hearing loss, Vertigo, Nasal discharge, Oral lesions, Throat pain, Hoarseness, Ear Pain, Running Nose, Epistaxis, Sinus Pain, Toothache, Odynophagia Respiratory: DENIES: Apneas, Cough, Snoring, Wheezing, Hemoptysis, Sputum production, Shortness of breath Cardiovascular: DENIES: Chest pain, Palpitations, Syncope, Dyspnea on Exertion , PND, Lower Extremity Edema, Orthopnea, Claudication Gastrointestinal: DENIES: Abdominal pain, Black stools, Bloody stools, Constipation, Diarrhea, Nausea, Vomiting, Difficulty Swallowing, Anorexia Genitourinary: DENIES: Sexual dysfunction, Urinary frequency, Urinary incontinence, Urgency, Hematuria, Dysuria, Nocturia, Penile Discharge, Testicular Pain, Testicular Swelling Musculoskeletal: DENIES: Joint pain, Muscle aches, Stiffness, Joint Swelling, Back pain, Neck pain Integumentary: DENIES: Abnormal pigmentation, Nail changes, Pruritus, Rash Hematologic/lymphatic: DENIES: Bruising, Lymphadenopathy Immunologic/allergic: DENIES: Eczema, Urticaria Neurologic: DENIES: Abnormal gait, Headache, Localized weakness, Paresthesias, Seizures, Speech Problems, Tremor, Poor Balance Psychiatric: DENIES: Anxiety, Confusion, Mood changes, Depression, Hallucinations, Agitation, Suicidal Ideation, Homicidal Ideation, Delusions Past Family Social History Coded Allergies: No Known Allergies (Unverified Allergy, Unknown, 04/19/17) Discontinued Scripts Ciprofloxacin Hcl (Cipro) 500 Mg Tab, 500 MG PO BID, #14 TAB Prov:Melanie Caballero MD 06/30/15 Current Medications Medications (Trade) Dose Ordered Sig/Pooja Route Start Time Stop Time Status Last Admin (NS Flush) 2 ml UNSCH PRN IV FLUSH 04/19/17 04:45 04/19/17 06:14 Miscellaneous Information 1 Q361D XX 04/19/17 09:45 04/19/17 09:45 (Chlorhexidine 2% Cloth) Taper DAILY@04 TOP 04/20/17 04:00 04/16/18 03:59 04/24/17 04:00 (Chlorhexidine 2% Cloth) 3 pack UNSCH PRN TOP 04/19/17 09:45 (Jocy-Colace) 1 tab BID PO 04/19/17 21:00 04/24/17 08:20 (Milk Of Magnesia Liq) 30 ml Q12H PRN PO 04/19/17 09:45 (Senokot) 17.2 mg Q12H PRN PO 04/19/17 09:45 (Dulcolax Supp) 10 mg DAILY PRN RECTAL 04/19/17 09:45 (Lactulose Liq) 30 ml DAILY PRN PO 04/19/17 09:45 (D50w (Vial) Inj) 50 ml UNSCH PRN IV PUSH 04/19/17 09:45 (Glucagon Inj) 1 mg UNSCH PRN OTHER 04/19/17 09:45 (NovoLIN R SUPPLEMENTAL SCALE) 1 Q4H SQ 04/19/17 09:45 (Vitamin B1) 100 mg DAILY PO 04/19/17 11:00 04/25/17 08:05 (Folate) 1 mg DAILY PO 04/19/17 11:00 04/25/17 08:05 (Theragran) 1 tab DAILY PO 04/19/17 11:00 04/25/17 08:05 (Lactulose Liq) 30 ml TID PO 04/19/17 13:00 04/25/17 08:06 (Romazicon Inj) 0.2 mg Q1M PRN IV PUSH 04/19/17 10:00 (Ativan) 1 mg Q4H PRN PO 04/19/17 10:00 04/23/17 15:39 (Ativan Inj) 1 mg Q4H PRN IV PUSH 04/19/17 10:00 (Ativan) 2 mg Q2H PRN PO 04/19/17 10:00 04/23/17 22:15 (Ativan Inj) 2 mg Q2H PRN IV PUSH 04/19/17 10:00 (Ativan Inj) 2 mg Q1H PRN IV PUSH 04/19/17 10:00 04/19/17 23:55 (Ativan Inj) 2 mg Q15M PRN IV PUSH 04/19/17 10:00 04/23/17 22:35 Potassium Chloride 100 ml @ 50 mls/hr Q2H PRN IV 04/19/17 10:00 Potassium Chloride 100 ml @ 50 mls/hr Q2H PRN IV 04/19/17 10:00 04/20/17 02:50 (K-Lyte Cl Eff) 50 meq UNSCH PRN PO 04/19/17 10:00 04/24/17 08:21 Potassium Chloride 100 ml @ 25 mls/hr UNSCH PRN IV 04/19/17 10:00 Potassium Chloride 100 ml @ 50 mls/hr Q2H PRN IV 04/19/17 10:00 04/23/17 22:33 Magnesium Sulfate 4 gm/Sodium Chloride 100 ml @ 50 mls/hr UNSCH PRN IV 04/19/17 10:00 (Mag-Ox) 800 mg UNSCH PRN PO 04/19/17 10:00 Magnesium Sulfate 2 gm/Sodium Chloride 100 ml @ 50 mls/hr UNSCH PRN IV 04/19/17 10:00 04/20/17 20:34 (K-Phos) 2,000 mg Q4H PRN PO 04/19/17 10:00 Sodium Phosphate 30 mmol/Sodium Chloride 250 ml @ 42 mls/hr UNSCH PRN IV 04/19/17 10:00 (K-Phos) 2,000 mg UNSCH PRN PO/TUBE 04/19/17 10:00 Potassium Phosphate 30 mmol/ Sodium Chloride 260 ml @ 42 mls/hr UNSCH PRN IV 04/19/17 10:00 04/20/17 00:48 (Heparin Inj) 5,000 units Q12HR SQ 04/19/17 21:00 Future Hold 04/23/17 21:04 (Romazicon Inj) 0.2 mg Q1M PRN IV PUSH 04/19/17 21:00 (Ativan) 1 mg Q4H PRN PO 04/19/17 21:00 (Ativan Inj) 1 mg Q4H PRN IV PUSH 04/19/17 21:00 (Ativan) 2 mg Q2H PRN PO 04/19/17 21:00 (Ativan Inj) 2 mg Q2H PRN IV PUSH 04/19/17 21:00 (Ativan Inj) 2 mg Q1H PRN IV PUSH 04/19/17 21:00 (Ativan Inj) 2 mg Q15M PRN IV PUSH 04/19/17 21:00 (Haldol Inj) 2 mg Q15M PRN IM 04/19/17 21:00 04/23/17 22:56 Acetaminophen 100 ml @ 400 mls/hr Q8HR PRN IV 04/21/17 16:30 04/24/17 20:38 (Albuterol Neb) 2.5 mg Q2HR NEB PRN NEB 04/21/17 16:30 (Pepcid) 20 mg BID PO 04/21/17 21:00 04/25/17 08:05 (Miralax) 17 gm DAILY PO 04/22/17 09:00 04/24/17 08:20 (Librium) 10 mg TID PO 04/21/17 18:00 04/25/17 08:05 (Roxicodone) 5 mg Q6H PRN PO 04/21/17 16:45 04/23/17 14:54 (Duoneb Neb) 1 ampule Q6HR NEB NEB 04/21/17 22:00 04/25/17 11:30 (Xifaxan) 550 mg BID PO 04/22/17 21:00 04/25/17 08:05 Dexmedetomidine HCl 200 mcg/ Sodium Chloride 52 ml @ 3.54 mls/hr TITRATE PRN IV 04/23/17 23:15 Piperacillin Sod/ Tazobactam Sod 100 ml @ 200 mls/hr Q6H IV 04/24/17 09:00 04/25/17 08:06 Dextrose/Sodium Chloride 1,000 ml @ 84 mls/hr [id number] IV 04/24/17 09:00 04/24/17 20:37 Family Psych History He denies family psychiatric history Social History Patient was born and raised in [place], he lives with his girlfriend in [facility], unemployed, on SSI process, his highest level of education is high school Patient's Strengths (min. 2) Verbal communication Physical Exam No tremors, no EPS, no withdrawal symptoms present at the moment Vital Signs Vital Signs Date Time Temp Pulse Resp B/P (MAP) Pulse Ox O2 Delivery O2 Flow Rate FiO2 04/25/17 11:31 96 04/25/17 08:00 98.7 103 25 127/82 (97) 04/24/17 19:39 21 04/24/17 11:55 Nasal Cannula 4.00 I/O 04/25/17 04/25/17 04/26/17 08:00 16:00 00:00 Intake Total 1038 ml Output Total 1000 ml Balance 38 ml Lab Results Test 04/25/17 07:50 White Blood Count 3.5 TH/MM3 Red Blood Count 3.52 MIL/MM3 Hemoglobin 11.7 GM/DL Hematocrit 34.4 % Mean Corpuscular Volume 97.8 FL Mean Corpuscular Hemoglobin 33.4 PG Mean Corpuscular Hemoglobin Concent 34.1 % Red Cell Distribution Width 15.1 % Platelet Count 129 TH/MM3 Mean Platelet Volume 8.1 FL CBC Comment AUTO DIFF Differential Total Cells Counted 100 Neutrophils % (Manual) 54 % Band Neutrophils % 10 % Lymphocytes % 22 % Monocytes % 14 % Neutrophils # (Manual) 2.2 TH/MM3 Differential Comment FINAL DIFF MANUAL Platelet Estimate LOW Platelet Morphology Comment NORMAL Target Cells 1+ Blood Urea Nitrogen 6 MG/DL Creatinine 0.43 MG/DL Random Glucose 93 MG/DL Total Protein 6.1 GM/DL Albumin 2.1 GM/DL Calcium Level 7.9 MG/DL Phosphorus Level 2.8 MG/DL Magnesium Level 1.7 MG/DL Alkaline Phosphatase 161 U/L Aspartate Amino Transf (AST/SGOT) 114 U/L Alanine Aminotransferase (ALT/SGPT) 57 U/L Total Bilirubin 0.7 MG/DL Sodium Level 138 MEQ/L Potassium Level 3.3 MEQ/L Chloride Level 106 MEQ/L Carbon Dioxide Level 25.8 MEQ/L Anion Gap 6 MEQ/L Estimat Glomerular Filtration Rate 205 ML/MIN Date/Time Source Procedure Growth Status 04/24/17 00:28 Blood Peripheral Aerobic Blood Culture - Preliminary NO GROWTH IN 1 DAY Resulted 04/24/17 00:28 Blood Peripheral Anaerobic Blood Culture - Preliminary NO GROWTH IN 1 DAY Resulted 04/24/17 15:15 Sputum Expectorated Sputum Gram Stain - Final Resulted 04/24/17 15:15 Sputum Expectorated Sputum Sputum Culture - Preliminary IMMATURE GROWTH - REINCUBATE Resulted 04/23/17 12:25 Urine Clean Catch Urine Culture - Preliminary Pseudomonas Aeruginosa Gram Negative Javan Resulted Mental Status Examination Appearance: Appropriate Consciousness: Alert Orientation: x4 Motor Activity: Normal gait Speech: Unremarkable Language: Adequate Fund of Knowledge: Adequate Attention and Concentration: Adequate Memory: Unremarkable Mood: Appropriate Affect: Appropriate Thought Process & Associations: Intact Thought Content: Appropriate Hallucination Type: None Delusion Type: None Suicidal Ideation: No Suicidal Plan: No Suicidal Intention: No Homicidal Ideation: No Homicidal Plan: No Homicidal Intention: No Insight: Adequate Judgment: Adequate Assessment & Plan Problem List: (1) Alcohol abuse with alcohol-induced mood disorder ICD Codes: F10.14 - Alcohol abuse with alcohol-induced mood disorder Assessment & Plan: At the moment of this evaluation the patient does not present any acute, concerning or significant evidence of objective or subjective symptomatology of depression, anxiety, judd or psychosis. The patient denies suicidal and homicidal ideation, he denies visual and auditory hallucinations. He seems to me that his initial suicidal statements were done in the context of acute alcohol intoxication. Patient does not meet criteria for involuntary psychiatric admission at this moment. Continue CIWA protocol. Motivation and psychoeducation provided. I will lifted the Leigh act. Assessment & Plan Estimated LOS: Vikram Kunz MD Apr 25, 2017 14:16
[2017-04-25] MEDS: DEXT 5%-NACL 0.9% 1000 ML INJ 1,000 ML IV SCH ×2 (15:01→20:05)
[2017-04-25] MEDS: POTASSIUM CHLORIDE 25 MEQ EFFERVESCENT TAB PO PRN (20:06)
[2017-04-26] VITALS: PULSE 100
[2017-04-26 00:30] VITALS: BP 135/74; PULSE 97; RESP 18; TEMP 98.7; O2SAT 98
[2017-04-26] MEDS: INSULIN NovoLIN REGULAR SUPPLEMENTAL SCALE SQ SCH ×4 (01:45→13:45)
[2017-04-26] MEDS: PIPERACIL-TAZO 4.5 GM PREMIX 100 ML IV SCH ×2 (03:00→09:49)
[2017-04-26 04:00] VITALS: BP 129/77; PULSE 101; PULSE 95; RESP 16; TEMP 99.3; O2SAT 96
[2017-04-26] MEDS: CHLORHEXIDINE GLUCONATE 2 % 1 PACK (2 CLOTHS) TOP SCH (04:00)
[2017-04-26] MEDS: DEXT 5%-NACL 0.9% 1000 ML INJ 1,000 ML IV SCH (06:00)
[2017-04-26 08:00] VITALS: BP 124/70; PULSE 122; PULSE 91; RESP 20; TEMP 98.2; O2SAT 96
[2017-04-26 08:08] LABS: ALBUMIN 2.2 GM/DL (3.4-5.0); AST (GOT) 100 U/L (15-37); BICARBONATE 25.7 MEQ/L (21.0-32.0); BLOOD UREA NITROGEN 4 MG/DL (7-18); CALCIUM 8.3 MG/DL (8.5-10.1); CHLORIDE 111 MEQ/L (98-107); CREATININE 0.51 MG/DL (0.60-1.30); GLOMERULAR FILTRATION RATE 168 ML/MIN (>89); GLUCOSE,RANDOM 98 MG/DL (74-106); SODIUM (NA) 142 MEQ/L (136-145)
[2017-04-26 08:09] LABS: ALT (GPT) 61 U/L (12-78)
[2017-04-26 08:11] LABS: ALKALINE PHOSPHATASE 191 U/L (45-117); TOTAL BILIRUBIN ADULT 0.7 MG/DL (0.2-1.0); TOTAL PROTEIN 6.4 GM/DL (6.4-8.2)
[2017-04-26 08:20] LABS: AUTOMATED NEUTROPHIL # 1.4 TH/MM3 (1.8-7.7); BASOPHIL % 1.1 % (0.0-2.0); EOSINOPHIL # 0.1 TH/MM3 (0-0.4); EOSINOPHIL % 3.7 % (0.0-4.0); HEMATOCRIT 33.4 % (39.0-51.0); HEMOGLOBIN 11.4 GM/DL (13.0-17.0); LYMPH % 36.5 % (9.0-44.0); LYMPHOCYTE # 1.2 TH/MM3 (1.0-4.8); MEAN CELL VOLUME 97.2 FL (80.0-100.0); MEAN CORPUSCULAR HEMOGLOBIN 33.2 PG (27.0-34.0); MEAN CORPUSCULAR HGB CONC 34.1 % (32.0-36.0); MEAN PLATELET VOLUME 8.6 FL (7.0-11.0); MONO % 14.4 % (0.0-8.0); MONOCYTE # 0.5 TH/MM3 (0-0.9); NEUT % 44.3 % (16.0-70.0); PLATELET COUNT 170 TH/MM3 (150-450); RED BLOOD COUNT 3.43 MIL/MM3 (4.50-5.90); RED CELL DISTRIBUTION WIDTH 15.1 % (11.6-17.2); WHITE BLOOD COUNT 3.3 TH/MM3 (4.0-11.0)
[2017-04-26] MEDS: DOCUSATE SODIUM 50 MG/SENNA 8.6 MG TAB PO SCH (09:49)
[2017-04-26] MEDS: RIFAXIMIN 550 MG TAB PO SCH (09:49)
[2017-04-26] MEDS: THIAMINE HCL 100 MG TAB PO SCH (09:49)
[2017-04-26] MEDS: MULTIVITAMIN TAB PO SCH (09:49)
[2017-04-26] MEDS: FOLIC ACID 1 MG TAB PO SCH (09:49)
[2017-04-26] MEDS: FAMOTIDINE 20 MG TAB PO SCH (09:49)
[2017-04-26] MEDS: POLYETHYLENE GLYCOL 17 GM PKG PO SCH (09:50)
[2017-04-26] MEDS: LACTULOSE SYRUP 20 GM/30 ML CUP PO SCH ×2 (09:50→13:45)
[2017-04-26 12:00] VITALS: BP 151/94; PULSE 91; PULSE 97; RESP 20; TEMP 98.2; O2SAT 98
[2017-04-26] MEDS ORDERED: CHLO10CA5 PO (13:00)
[2017-04-26] MEDS ORDERED: Lactulose Liq PO (13:00)
[2017-04-26] MEDS ORDERED: THIA100 PO (13:00)
[2017-04-26] MEDS ORDERED: XIFA550T4 PO (13:00)
[2017-04-26] MEDS ORDERED: FAMO20TA2 PO (13:00)
[2017-04-26] MEDS ORDERED: FOLI1TAB6 PO (13:00)
[2017-04-26] MEDS ORDERED: LEVA750T9 PO (13:02)
--- NOTE | 2017-04-26 19:40 | HHI.DS ---
Discharge Summary Admission Date Apr 19, 2017 at 07:00 Discharge Date: Apr 26, 2017 Admitting Diagnosis Acute Alcohol Withdrawal w/ Delirium and Seizures (1) Alcohol abuse with alcohol-induced mood disorder ICD Code: F10.14 - Alcohol abuse with alcohol-induced mood disorder Procedures See below Brief History - From Admission The patient is a 57-year-old male with past medical history of ETOH abuse, crack cocaine, who presented to [facility] ED via EMS with possible alcohol withdrawal. According to the ED records the patient has not had alcohol for at least 24 hours and his current presentation is similar to previous episodes of alcohol withdrawal. No harpreet seizure activity noted by EMS en route or in the ED. History is limited due to patient's mental status and most of the history was obtained from reviewing medical records. He was given total Ativan 10 mg since early this morning, in addition to 2 liter boluses of normal saline. His laboratory data significant for elevated alcohol level at 37, elevated CKs 4919 and ammonia level 51. The patient was also noted to have increased LFTs with AST 328, ALT 102, alk phos 288 and total bilirubin 1.4. Due to altered mental status CT scan of brain was obtained which showed no evidence of any acute intracranial pathology. Chest x-ray in the ED showed no acute cardiopulmonary disease as well. CBC/BMP: 04/26/17 0729 04/26/17 0729 Significant Findings Laboratory Tests Test 04/24/17 06:53 04/24/17 06:55 04/25/17 07:50 04/26/17 07:29 White Blood Count 3.8 TH/MM3 (4.0-11.0) 3.5 TH/MM3 (4.0-11.0) 3.3 TH/MM3 (4.0-11.0) Red Blood Count 3.66 MIL/MM3 (4.50-5.90) 3.52 MIL/MM3 (4.50-5.90) 3.43 MIL/MM3 (4.50-5.90) Hemoglobin 12.1 GM/DL (13.0-17.0) 11.7 GM/DL (13.0-17.0) 11.4 GM/DL (13.0-17.0) Hematocrit 35.9 % (39.0-51.0) 34.4 % (39.0-51.0) 33.4 % (39.0-51.0) Platelet Count 120 TH/MM3 (150-450) 129 TH/MM3 (150-450) Neutrophils (%) (Auto) 70.7 % (16.0-70.0) Monocytes (%) (Auto) 13.8 % (0.0-8.0) 14.4 % (0.0-8.0) Lymphocytes # (Auto) 0.6 TH/MM3 (1.0-4.8) Blood Urea Nitrogen 6 MG/DL (7-18) 6 MG/DL (7-18) 4 MG/DL (7-18) Creatinine 0.38 MG/DL (0.60-1.30) 0.43 MG/DL (0.60-1.30) 0.51 MG/DL (0.60-1.30) Albumin 2.3 GM/DL (3.4-5.0) 2.1 GM/DL (3.4-5.0) 2.2 GM/DL (3.4-5.0) Calcium Level 8.2 MG/DL (8.5-10.1) 7.9 MG/DL (8.5-10.1) 8.3 MG/DL (8.5-10.1) Alkaline Phosphatase 176 U/L (45-117) 161 U/L (45-117) 191 U/L (45-117) Aspartate Amino Transf (AST/SGOT) 124 U/L (15-37) 114 U/L (15-37) 100 U/L (15-37) Potassium Level 3.3 MEQ/L (3.5-5.1) 3.3 MEQ/L (3.5-5.1) Total Creatine Kinase 1088 U/L (39-308) Band Neutrophils % 10 % (0-6) Monocytes % 14 % (0-8) Platelet Estimate LOW (NORMAL) Target Cells 1+ (NORMAL) Total Protein 6.1 GM/DL (6.4-8.2) Neutrophils # (Auto) 1.4 TH/MM3 (1.8-7.7) Chloride Level 111 MEQ/L (98-107) Test 04/26/17 14:03 Transfer Summary Patient is a 57-year-old male with past medical history of ETOH abuse, crack cocaine, who presented to [facility] ED via EMS with possible alcohol withdrawal. According to the ED records the patient has not had alcohol for at least 24 hours and his current presentation is similar to previous episodes of alcohol withdrawal. No harpreet seizure activity noted by EMS en route or in the ED. History is limited due to patient's mental status and most of the history was obtained from reviewing medical records. He was given total Ativan 10 mg since early this morning, in addition to 2 liter boluses of normal saline. His laboratory data significant for elevated alcohol level at 37, elevated CKs 4919 and ammonia level 51. The patient was also noted to have increased LFTs with AST 328, ALT 102, alk phos 288 and total bilirubin 1.4. Due to altered mental status CT scan of brain was obtained which showed no evidence of any acute intracranial pathology. Chest x-ray in the ED showed no acute cardiopulmonary disease as well. 04/20 Patient was placed on Precedex drip overnight for agitation. Afebrile. 04/21: Tmax 102.7. Currently afebrile. Complaining of "myalgias and joint pain ". Receiving lorazepam for EtOH withdrawal. Subjective 04/22: Tmax 100.2. Currently 99.5. More cognizant today. Oriented to person place and time. Less tremulous. Positive BM. Tolerating diet. 04/23: Lying in bed, oriented. But spiking fever 102.8, pancytopenic. Oriented alert. Panculture and Flu ag ordered 04/24 Patient is lying in bed in NAD. Awake and alert. T:1max 103.6 last night. 04/25: Resting in bed comfortably. Not in any acute distress. Objective Objective Vital Signs Date Time Temp Pulse Resp B/P (MAP) Pulse Ox O2 Delivery O2 Flow Rate FiO2 04/25/17 08:00 98.7 103 25 127/82 (97) 90 04/24/17 19:39 21 04/24/17 11:55 Nasal Cannula 4.00 Intake and Output 04/25/17 04/25/17 04/26/17 08:00 16:00 00:00 Intake Total 1038 ml Output Total 1000 ml Balance 38 ml Result Diagram: 04/25/17 0750 04/25/17 0750 Other Results Microbiology Date/Time Source Procedure Growth Status 04/23/17 13:50 Nasal Washing Influenza Types A,B Antigen (PHOEBE) - Final NEGATIVE FOR FLU A AND B ANTIGEN.... Complete Imaging Last Impressions Chest X-Ray 04/24/17 0600 Signed Impressions: Service Date/Time: Monday, April 24, 2017 04:22 - CONCLUSION: Left perihilar consolidation or atelectasis Mitchell Mackay MD Abdomen/Pelvis CT 04/23/17 0000 Signed Impressions: Service Date/Time: Sunday, April 23, 2017 13:25 - CONCLUSION: Small posterior layering left pleural effusion with minimal adjacent compressive atelectasis. Punctate posterior layering gallstone 1.5 cm cyst cortex of the left kidney . Fatty metamorphosis of the liver Keanu Valadez MD Head CT 04/19/17 0431 Signed Impressions: Service Date/Time: April 06:26 - CONCLUSION: 1. No evidence of acute intracranial pathology. No masses are identified. Joesph Bailon MD Liver Ultrasound 04/19/17 0000 Signed Impressions: Service Date/Time: April 10:10 - CONCLUSION: 1. Hepatosplenomegaly with coarse hepatic echotexture which could indicate hepatocellular disease or cys hepatic steatosis. 2. Cholelithiasis with single gallstone and mild wall thickening. There is no evidence of biliary obstruction. Paul Hassan MD Objective Remarks GENERAL: 57-year-old male resting in bed in no acute distress SKIN: Warm and dry. Febrile HEAD: Normocephalic. EYES: No scleral icterus. No injection or drainage. NECK: Supple, trachea midline. No JVD or lymphadenopathy. CARDIOVASCULAR: Tachycardic, RR. S1, S2 no S4 without murmur RESPIRATORY: Breath sounds equal bilaterally. No accessory muscle use. GASTROINTESTINAL: Abdomen soft, non-tender. Positive hepatosplenomegaly. MUSCULOSKELETAL: No significant peripheral edema NEURO: Awake and alert, nonfocal grossly. Plan A/P Assessment and Plan Neuro/Psych: Acute toxic metabolic encephalopathy secondary to EtOH withdrawal/hyperammonia Possible illicit drug overdose EtOH abuse Oxycodone 5 mg every 6 hours when necessary pain 1-10 Patient is currently on chlordiazepoxide 10 mg by mouth 3 times a day CIWA protocol with lorazepam initiated CT brain in the ED showed no acute intracranial pathology. Continue with thiamine, multivitamins and folic acid. ETOH 37, UDS (-) Pulm: Continue with oxygen, maintain sats above 92%. Bronchodilators, aspiration precautions CXR in ED showed no evidence of any acute cardiopulmonary disease. CXR today: Left perihilar consolidation/atelectasis CV: Monitor HR and BP and maintain MAP > 65 mmHg. FEN/renal/: Rhabdomyolysis Hyponatremia Monitor renal function, I&O's accurate Replace electrolytes per ICU electrolyte replacement per protocol Resume D5NS@84ml/hr. Will need K replacement today GI: Hyperammonemia Elevated LFTs Hepatic steatosis Cholelithiasis Hepatitis C antibody positive. Genotype and viral load pending Hypoalbuminemia Regular diet. On famotidine 20 mg by mouth twice daily Monitor LFTs( trending down) US Liver: Hepatosplenomegaly with hepatic steatosis. Cholelithiasis with single gallstone and mild wall thickening. No biliary obstruction. Hepatitis profile: Hep C reactive ab. On lactulose 30 cc redesignated. Xifaxan 550 mg twice a day. Ammonia level 45 yesterday ID: Pyrexia, Repeat blood culture x2, sputum cx, urine cx. 04/23 Check strep pneumonia and Legionella urinary Ag Nasal washing negative for Influenza Blood cultures 2 ordered 04/[address] on empiric abx ( Zosyn) give vanco 1gram x1 CT abd/pelvis: Small posterior layering left pleural effusion with minimal adjacent compressive atelectasis. Punctate posterior layering gallstone,1.5 cm cyst cortex of the left kidney . Fatty metamorphosis of the liver Heme: Normocytic anemia Thrombocytopenia Leukopenia Monitor CBC daily. Follow trends Endo: SSI with Accu-Cheks for glycemic control. GI prophylaxis with famotidine 20 mg q. 12 and DVT prophylaxis with SCDs and heparin subcu. Consult and transfer to hospitalist service for further medical management. Transfer out of ICU. Hospital Course Adding in resuming to its mention in transfer note, patient significantly improved, awake alert, mobility is balance, patient want to be discharged and follow up for his detox, will give him prescription for Librium, thiamine and folic acid. Rhabdo has completely resolved with CK repeated on day of discharge showing 189 Pt Condition on Discharge: Fair Discharge Disposition: Discharge Home Discharge Time: <= 30 minutes Discharge Instructions DIET: Follow Instructions for: As Tolerated, No Restrictions Activities you can perform: Weight Bearing as Crow New Orders: AMMONIA - 2-3 Days CREATININE KINASE - 2-3 Days New Medications: Levofloxacin (Levaquin) 750 Mg Tablet 750 MG PO DAILY for Infection for 5 Days, #5 TAB 0 Refills Chlordiazepoxide HCl (Chlordiazepoxide HCl) 10 Mg Capsule 10 MG PO TID for etoh withdrawl for 12 Days, TAB Famotidine (Famotidine) 20 Mg Tab 20 MG PO BID for gi proph for 30 Days, #60 TAB Folic Acid (Folic Acid) 1 Mg Tablet 1 MG PO DAILY for supplement for 30 Days, #30 TAB Rifaximin (Xifaxan) 550 Mg Tab 550 MG PO BID for hyperamonemia for 30 Days, #60 TAB Thiamine HCl (Gnp Vitamin B-1) 100 Mg Tab 100 MG PO DAILY for supplement for 30 Days, #30 TAB [Lactulose Liq] () 30 ML SYRP 30 ML PO DAILY, #10 Thien Laguna MD Apr 26, 2017 19:40
== END 2017-04-26 15:35 | disposition home or self-care (01) | DRG 896 ==
LOC: NEPC 04:27 → NEDA 07:00 → HIMN 15:00 → N04B 04-25 21:19
PROVIDERS: ADMIT Internal Medicine Critical Care Medicine; ATTEND Hospitalist
DX: F10.231 Alcohol dependence with withdrawal delirium (principal); G92 Toxic encephalopathy; D61.818 Other pancytopenia; M62.82 Rhabdomyolysis; E83.39 Other disorders of phosphorus metabolism; E88.09 Other disorders of plasma-protein metabolism, not elsewhere classified; F10.24 Alcohol dependence with alcohol-induced mood disorder; E87.1 Hypo-osmolality and hyponatremia; Y90.1 Blood alcohol level of 20-39 mg/100 ml; R50.9 Fever, unspecified; B19.20 Unspecified viral hepatitis C without hepatic coma; K80.20 Calculus of gallbladder without cholecystitis without obstruction; F17.210 Nicotine dependence, cigarettes, uncomplicated; K76.0 Fatty (change of) liver, not elsewhere classified
CPT/HCPCS: 36600; 70450; 71045; 74177; 76705; 80053; 80061; 80074; 80307; 81001; 82140; 82150; 82550; 82552; 82805; 82948; 83690; 83735; 84100; 84132; 84443; 84484; 85007; 85025; 85027; 85610; 85730; 87040; 87070; 87077; 87086; 87186; 87205; 87522; 87804; 87902; 93005; 94150; 94640; 94664; 96365; 96367; 96375; J0131; J1200; J1630; J1644; J1953; J2060; J2543; J3370; J3411; J3475; J3480; J7030; J7042; J7050; J7613; Q9967

== ENCOUNTER 2017-06-02 14:01 | Emergency (ER) | payer OTHER ==
[~2017-06-02 14:01] MED LIST changes: +CHLO10CA5 PO; -CIPR500T4 PO; +FAMO20TA2 PO; +FOLI1TAB6 PO; +LEVA750T9 PO; +Lactulose Liq PO; +THIA100 PO; +XIFA550T4 PO
[2017-06-02 14:13] VITALS: BP 138/68; PULSE 92; RESP 20; TEMP 98.5; O2SAT 98
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
[2017-06-02 20:39] VITALS: BP 99/58; PULSE 87; RESP 16; O2SAT 97
== END 2017-06-02 21:10 | disposition home or self-care (01) ==
LOC: NEPD 14:01
DX: S02.2XXA Fracture of nasal bones, initial encounter for closed fracture (principal); F10.920 Alcohol use, unspecified with intoxication, uncomplicated; Y09 Assault by unspecified means; Z72.0 Tobacco use
CPT/HCPCS: 70450; 70486; 99283

== ENCOUNTER 2017-09-12 04:06 | Emergency (ER) | payer OTHER ==
[~2017-09-12] VITALS: Ht 177.8 cm; Wt 75.0 kg
[2017-09-12 04:26] VITALS: BP 128/72; PULSE 83; RESP 18; TEMP 97.6; O2SAT 98
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
[2017-09-12] MEDS ORDERED: LORazepam 2 MG/ML VIAL IV PUSH PRN ×4 (05:00)
[2017-09-12] MEDS ORDERED: FLUMAZENIL 0.5 MG/5 ML VIAL IV PUSH PRN (05:00)
[2017-09-12] MEDS ORDERED: LORazepam 2 MG TAB PO PRN (05:00)
[2017-09-12] MEDS ORDERED: LORazepam 1 MG TAB PO PRN (05:00)
[2017-09-12] MEDS ORDERED: THIAMINE INJ 100 MG in SODIUM CHLORIDE 0.9% INJ 100 ML IV ONE (05:00)
[2017-09-12] MEDS ORDERED: TETANUS/DIPHTHERIA TOXOID ADULT 0.5 ML VIAL IM ONE (05:00)
[2017-09-12 05:15] LABS: AUTOMATED NEUTROPHIL # 2.3 TH/MM3 (1.8-7.7); BASOPHIL # 0.1 TH/MM3 (0-0.2); BASOPHIL % 1.4 % (0.0-2.0); EOSINOPHIL # 0.1 TH/MM3 (0-0.4); EOSINOPHIL % 2.3 % (0.0-4.0); HEMATOCRIT 40.1 % (39.0-51.0); HEMOGLOBIN 13.4 GM/DL (13.0-17.0); LYMPH % 47.6 % (9.0-44.0); LYMPHOCYTE # 2.8 TH/MM3 (1.0-4.8); MEAN CELL VOLUME 95.2 FL (80.0-100.0); MEAN CORPUSCULAR HEMOGLOBIN 31.7 PG (27.0-34.0); MEAN CORPUSCULAR HGB CONC 33.3 % (32.0-36.0); MEAN PLATELET VOLUME 8.1 FL (7.0-11.0); MONO % 8.8 % (0.0-8.0); MONOCYTE # 0.5 TH/MM3 (0-0.9); NEUT % 39.9 % (16.0-70.0); PLATELET COUNT 168 TH/MM3 (150-450); RED BLOOD COUNT 4.22 MIL/MM3 (4.50-5.90); RED CELL DISTRIBUTION WIDTH 16.7 % (11.6-17.2); WHITE BLOOD COUNT 5.9 TH/MM3 (4.0-11.0)
[2017-09-12 05:24] LABS: ALBUMIN 3.4 GM/DL (3.4-5.0); ALT (GPT) 52 U/L (12-78); AST (GOT) 167 U/L (15-37); BICARBONATE 23.6 MEQ/L (21.0-32.0); BLOOD UREA NITROGEN 4 MG/DL (7-18); CALCIUM 8.1 MG/DL (8.5-10.1); CHLORIDE 107 MEQ/L (98-107); CREATININE 0.63 MG/DL (0.60-1.30); GLOMERULAR FILTRATION RATE 132 ML/MIN (>89); GLUCOSE,RANDOM 97 MG/DL (74-106); SODIUM (NA) 140 MEQ/L (136-145)
--- NOTE | 2017-09-12 05:26 | RADRPT ---
EXAM DATE: 09/12/2017 5:20 AM EDT AGE/SEX: 57 years / Male INDICATIONS: Left elbow pain. CLINICAL DATA: This is the patient's initial encounter. Patient reports that signs and symptoms have been present for 1 day and indicates a pain score of Nonresponsive. MEDICAL/SURGICAL HISTORY: None. None. COMPARISON: No prior [facility] exams available for comparison. FINDINGS: Bony structures are intact and in normal alignment. Joints are intact without dislocation or signifi cant arthropathy. Osseous density is normal. Soft tissues are unremarkable. No radiopaque foreign bodies seen. CONCLUSION: Negative examination Electronically signed by: Gee Wheatley MD 09/12/2017 5:24 AM EDT
--- NOTE | 2017-09-12 05:27 | RADRPT ---
EXAM DATE: 09/12/2017 5:24 AM EDT AGE/SEX: 57 years / Male INDICATIONS: Chest pain. CLINICAL DATA: This is the patient's initial encounter. Patient reports that signs and symptoms have been present for 1 day and indicates a pain score of Nonresponsive. MEDICAL/SURGICAL HISTORY: Non-responsive. Non-responsive. COMPARISON: [facility] [place], CHEST SINGLE AP, 04/24/2017. . FINDINGS: A single AP view of the chest demonstrates the lungs to be symmetrically aerated without evidence of mass, infiltrate or effusion. The cardiomediastinal contours are unremarkable. Old stable fracture of the left clavicle. CONCLUSION: No acute intrathoracic disease. Electronically signed by: Gee Wheatley MD 09/12/2017 5:25 AM EDT
[2017-09-12 05:34] LABS: ALKALINE PHOSPHATASE 196 U/L (45-117); TOTAL BILIRUBIN ADULT 0.6 MG/DL (0.2-1.0); TOTAL PROTEIN 8.6 GM/DL (6.4-8.2)
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
--- NOTE | 2017-09-12 09:15 | PD ---
Physical Exam Date Seen by Provider: Sep 12, 2017 Time Seen by Provider: 09:14 Narrative 57-year-old male previously medically cleared under the Leigh act, has been seen and evaluated by the psychiatrist, and deemed to be psychiatrically stable for discharge at this time. Patient remains medically stable for discharge as well. Follow-up will be based on psychiatric note. Data Data Last Documented VS Vital Signs Date Time Temp Pulse Resp B/P (MAP) Pulse Ox O2 Delivery O2 Flow Rate FiO2 09/12/17 04:26 97.6 83 18 128/72 (90) 98 Orders Orders Complete Blood Count With Diff (09/12/17 04:51) Comprehensive Metabolic Panel (09/12/17 04:51) Thyroid Stimulating Hormone (09/12/17 04:51) Iv Access Insert/Monitor (09/12/17 04:51) Psych Screen (09/12/17 04:51) Drug Screen, Random Urine (09/12/17 04:51) Alcohol (Ethanol) (09/12/17 04:51) Alcohol Withdrawal Asmt-Ciwa ONCE (09/12/17 04:51) Flumazenil Inj (Romazicon Inj) (09/12/17 05:00) Lorazepam (Ativan) (09/12/17 05:00) Lorazepam Inj (Ativan Inj) (09/12/17 05:00) Lorazepam (Ativan) (09/12/17 05:00) Lorazepam Inj (Ativan Inj) (09/12/17 05:00) Lorazepam Inj (Ativan Inj) (09/12/17 05:00) Lorazepam Inj (Ativan Inj) (09/12/17 05:00) Ct Brain W/O Iv Contrast(Rout) (09/12/17 04:51) Thiamine Inj (Thiamine Inj) (09/12/17 05:00) Chest, Single Ap (09/12/17 ) Elbow, Complete (4 Vws) (09/12/17 ) Tetanus/Diphtheria Tox Adult (Tetanus/Di (09/12/17 05:00) Labs Laboratory Tests Test 09/12/17 04:41 White Blood Count 5.9 TH/MM3 Red Blood Count 4.22 MIL/MM3 Hemoglobin 13.4 GM/DL Hematocrit 40.1 % Mean Corpuscular Volume 95.2 FL Mean Corpuscular Hemoglobin 31.7 PG Mean Corpuscular Hemoglobin Concent 33.3 % Red Cell Distribution Width 16.7 % Platelet Count 168 TH/MM3 Mean Platelet Volume 8.1 FL Neutrophils (%) (Auto) 39.9 % Lymphocytes (%) (Auto) 47.6 % Monocytes (%) (Auto) 8.8 % Eosinophils (%) (Auto) 2.3 % Basophils (%) (Auto) 1.4 % Neutrophils # (Auto) 2.3 TH/MM3 Lymphocytes # (Auto) 2.8 TH/MM3 Monocytes # (Auto) 0.5 TH/MM3 Eosinophils # (Auto) 0.1 TH/MM3 Basophils # (Auto) 0.1 TH/MM3 CBC Comment AUTO DIFF Differential Comment AUTO DIFF CONFIRMED Platelet Estimate LOW Platelet Morphology Comment NORMAL Blood Urea Nitrogen 4 MG/DL Creatinine 0.63 MG/DL Random Glucose 97 MG/DL Total Protein 8.6 GM/DL Albumin 3.4 GM/DL Calcium Level 8.1 MG/DL Alkaline Phosphatase 196 U/L Aspartate Amino Transf (AST/SGOT) 167 U/L Alanine Aminotransferase (ALT/SGPT) 52 U/L Total Bilirubin 0.6 MG/DL Sodium Level 140 MEQ/L Potassium Level 3.8 MEQ/L Chloride Level 107 MEQ/L Carbon Dioxide Level 23.6 MEQ/L Anion Gap 9 MEQ/L Estimat Glomerular Filtration Rate 132 ML/MIN Thyroid Stimulating Hormone 3rd Gen 1.390 uIU/ML Ethyl Alcohol Level 337 MG/DL [facility] Medical Record Reviewed: Yes Supervised Visit with MAXWELL: Yes Narrative Course 57-year-old male previously medically cleared under the Leigh act, has been seen and evaluated by the psychiatrist, and deemed to be psychiatrically stable for discharge at this time. Patient remains medically stable for discharge as well. Follow-up will be based on psychiatric note. Diagnosis Primary Impression: Alcoholism Additional Impressions: Medical clearance for psychiatric admission Abrasions of multiple sites Referrals: [facility] Patient Instructions: General Instructions Med/Other Pt SpecificInfo: No Meds Exist/No RX given Scripts No Active Prescriptions or Reported Meds Disposition: 01 DISCHARGE HOME Condition: Stable Avtar Dempsey Sep 12, 2017 09:15
[2017-09-12 09:46] VITALS: BP 125/70; PULSE 80; RESP 16; O2SAT 99
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
== END 2017-09-12 10:20 | disposition home or self-care (01) ==
LOC: NEPD 04:06
DX: S50.312A Abrasion of left elbow, initial encounter (principal); F12.90 Cannabis use, unspecified, uncomplicated; F10.24 Alcohol dependence with alcohol-induced mood disorder; Y90.8 Blood alcohol level of 240 mg/100 ml or more; V19.9XXA Pedal cyclist (driver) (passenger) injured in unspecified traffic accident, initial encounter; Y93.55 Activity, bike riding; Z23 Encounter for immunization; Z72.0 Tobacco use
CPT/HCPCS: 70450; 71045; 73080; 80053; 80307; 84443; 85025; 90471; 90714; 96374; 99284; J3411